=== PATIENT | female | born 1940 | race Caucasian/White ===

== ENCOUNTER 2020-04-09 12:36 | Outpatient (REF) | payer MEDICARE, SELFPAY | END 2020-04-09 12:37 | disposition home or self-care (01) | LOC: HO.HAP 12:36 | PROVIDERS: Visit Provider Internal Medicine | DX: H90.3 Sensorineural hearing loss, bilateral (principal) | CPT/HCPCS: 92592; V5266 ==

== ENCOUNTER 2020-04-15 13:25 | Outpatient (REF) | payer MEDICARE, SELFPAY | END 2020-04-15 13:26 | disposition home or self-care (01) | LOC: HO.HAP 13:25 | PROVIDERS: Visit Provider Internal Medicine | DX: Z13.89 Encounter for screening for other disorder (principal) | CPT/HCPCS: 92700 ==

== ENCOUNTER 2020-07-19 10:35 | Outpatient (REF) | payer MEDICARE, SELFPAY | END 2020-07-19 10:36 | disposition home or self-care (01) | LOC: HO.HAP 10:35 | PROVIDERS: Visit Provider Internal Medicine | DX: Z46.1 Encounter for fitting and adjustment of hearing aid (principal); H90.3 Sensorineural hearing loss, bilateral | CPT/HCPCS: 92593; 99499; V5266 ==

== ENCOUNTER 2020-08-07 15:02 | Outpatient (REF) | payer MEDICARE, SELFPAY | END 2020-08-07 15:03 | disposition home or self-care (01) | LOC: HO.HAP 15:02 | PROVIDERS: Visit Provider Internal Medicine | DX: Z13.89 Encounter for screening for other disorder (principal) ==

== ENCOUNTER → 2021-01-06 14:54 | Outpatient (BNVA) | payer MEDICARE, SELFPAY | PROVIDERS: PCP Internal Medicine; Visit Provider Internal Medicine | DX: M25.561 Pain in right knee (principal); G89.29 Other chronic pain | CPT/HCPCS: 99202 ==

== ENCOUNTER 2021-01-07 16:11 | Emergency (ER) | payer MEDICARE, SELFPAY ==
--- NOTE | ~2021-01-07 | XR_ITS ---
EXAMINATION: XR TIBIA AND FIBULA, RIGHT XR TIBIA AND FIBULA, LEFT CLINICAL INFORMATION: Question fracture. Leg swelling. COMPARISON: None TECHNIQUE: AP and lateral views of each tibia and fibula. FINDINGS: RIGHT TIBIA AND FIBULA: Soft tissues are swollen with subcutaneous edema. No subcutaneous gas. No fracture or malalignment. There is osteoarthritis at the right knee, more pronounced at the medial compartment. At least mild osteoarthritis is suspected in the right ankle. LEFT TIBIA AND FIBULA: Soft tissue swelling and subcutaneous edema are present at the left lower leg, most notably at the ankle. No fracture or malalignment. No subcutaneous gas. Patellofemoral compartment osteoarthritis is present at the left knee. There is at least mild osteoarthritis at the left ankle. XR/XR tibia fibula RT 2V IMPRESSION: Soft tissue swelling and subcutaneous edema at the level of the tibias and fibulas. No fractures are identified.
--- NOTE | ~2021-01-07 | XR_ITS ---
EXAMINATION: XR CHEST CLINICAL INFORMATION: Leg swelling COMPARISON: None TECHNIQUE: Frontal view of the chest was obtained. FINDINGS: Cardiac silhouette is normal in size. The mediastinum appears mildly prominent, similar. 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 Lungs are well aerated. There is no lobar consolidation. No pleural effusion or pneumothorax. XR/XR chest 1V IMPRESSION: -No acute pulmonary pathology. -Mild prominence of the mediastinum, a nonspecific finding but felt to be secondary to unfolding of the thoracic aorta. This may be further evaluated with cross-sectional imaging if clinically indicated.
--- NOTE | ~2021-01-07 | US_ITS ---
EXAMINATION: US VENOUS ULTRASOUND WITH DOPPLER LOWER EXTREMITY, BILATERAL CLINICAL INFORMATION: Bilateral leg/foot swelling. COMPARISON: None TECHNIQUE: Ultrasound of the deep veins is performed from the hip to the calf with compression sonography and color and pulse Doppler assessment. Spectral analysis with color-flow imaging is performed. FINDINGS: RIGHT: There is normal venous compression and respiratory variation and augmented flow. The visualized common femoral vein, superficial femoral vein, profunda femoral vein, popliteal vein, and the trifurcation region shows no evidence of deep venous thrombosis. Within the right popliteal fossa there is a small to moderate-sized popliteal cyst which measures approximately 2.5 x 0.7 x 1.8 cm. LEFT: There is normal venous compression and respiratory variation and augmented flow. The visualized common femoral vein, superficial femoral vein, profunda femoral vein, popliteal vein, and the trifurcation region shows no evidence of deep venous thrombosis. There is no significant popliteal fossa cyst. If the patient's symptoms persist, followup ultrasound in 5 days 7 days might be of value to exclude proximal propagation from a non-visualized calf vein. US/US venous duplex LE IMPRESSION: -No DVT within either lower extremity. -Small to moderate sized right popliteal cyst.
--- NOTE | ~2021-01-07 | XR_ITS ---
EXAMINATION: XR FOOT, RIGHT XR FOOT, LEFT CLINICAL INFORMATION: Foot swelling. COMPARISON: None TECHNIQUE: AP, lateral, and oblique views of each foot. FINDINGS: RIGHT FOOT: Soft tissue swelling is present of the foot and ankle, most notably at the dorsal of the foot. No acute fractures. 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 Osteoarthritis is also present at the ankle. No erosions are identified. More mild multifocal osteoarthritis is present at the other joints in the midfoot and forefoot. No subcutaneous gas. Small enthesopathic spur is present at the plantar fascial origin on the calcaneus. LEFT FOOT: There is generalized soft tissue swelling in the left foot and ankle, most notably at the dorsal aspect of the forefoot. There is severe osteoarthritis in the first MTP joint and more mild multifocal osteoarthritis in the other joints of the midfoot and forefoot. No erosions. No acute fractures. No osteolysis. No subcutaneous gas. Small enthesopathic spurs are present at the Achilles tendon insertion and plantar fascial origin on the calcaneus. XR/XR foot LT 2V IMPRESSION: Generalized soft tissue swelling in the ankles and feet. No acute osseous findings. Multifocal osteoarthritis.
--- NOTE | ~2021-01-07 | XR_ITS ---
EXAMINATION: XR TIBIA AND FIBULA, RIGHT XR TIBIA AND FIBULA, LEFT CLINICAL INFORMATION: Question fracture. Leg swelling. COMPARISON: None TECHNIQUE: AP and lateral views of each tibia and fibula. FINDINGS: RIGHT TIBIA AND FIBULA: Soft tissues are swollen with subcutaneous edema. No subcutaneous gas. No fracture or malalignment. There is osteoarthritis at the right knee, more pronounced at the medial compartment. At least mild osteoarthritis is suspected in the right ankle. LEFT TIBIA AND FIBULA: Soft tissue swelling and subcutaneous edema are present at the left lower leg, most notably at the ankle. No fracture or malalignment. No subcutaneous gas. Patellofemoral compartment osteoarthritis is present at the left knee. There is at least mild osteoarthritis at the left ankle. XR/XR tibia fibula LT 2V IMPRESSION: Soft tissue swelling and subcutaneous edema at the level of the tibias and fibulas. No fractures are identified.
--- NOTE | ~2021-01-07 | XR_ITS ---
EXAMINATION: XR FOOT, RIGHT XR FOOT, LEFT CLINICAL INFORMATION: Foot swelling. COMPARISON: None TECHNIQUE: AP, lateral, and oblique views of each foot. FINDINGS: RIGHT FOOT: Soft tissue swelling is present of the foot and ankle, most notably at the dorsal of the foot. No acute fractures. 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 Osteoarthritis is also present at the ankle. No erosions are identified. More mild multifocal osteoarthritis is present at the other joints in the midfoot and forefoot. No subcutaneous gas. Small enthesopathic spur is present at the plantar fascial origin on the calcaneus. LEFT FOOT: There is generalized soft tissue swelling in the left foot and ankle, most notably at the dorsal aspect of the forefoot. There is severe osteoarthritis in the first MTP joint and more mild multifocal osteoarthritis in the other joints of the midfoot and forefoot. No erosions. No acute fractures. No osteolysis. No subcutaneous gas. Small enthesopathic spurs are present at the Achilles tendon insertion and plantar fascial origin on the calcaneus. XR/XR foot RT 2V IMPRESSION: Generalized soft tissue swelling in the ankles and feet. No acute osseous findings. Multifocal osteoarthritis.
[2021-01-07 17:31] VITALS: BP 144/62; PULSE 74; RESP 24; TEMP 36.9; O2SAT 95; BMI 37.9
--- NOTE | 2021-01-07 17:43 | ECG_ITS ---
Test Reason : CHF Blood Pressure : / mmHG Vent. Rate : 067 BPM Atrial Rate : 067 BPM P-R Int : 194 ms QRS Dur : 084 ms QT Int : 446 ms P-R-T Axes : 073 000 057 degrees QTc Int : 471 ms Normal sinus rhythm Normal ECG No previous ECGs available Referred By: Generic ED Physician Electronically Signed By:Sd White
[2021-01-07 18:04] LABS: Basophils Percent Auto 0.2 % (0-2); Eosinophils Absolute Auto 0.2 X10*3/uL (0.0-0.4); Eosinophils Percent Auto 1.4 % (0-4); Hematocrit 38.2 % (37-47); Hemoglobin 12.7 g/dl (12.0-16.0); Imm Gran Abs Auto 0.08 X10*3/uL (0.00-0.03); Imm Gran Pct Auto 0.6 % (0.0-0.4); Lymphocytes Absolute Auto 2.3 X10*3/uL (1.2-4.9); MANUAL DIFF FLAG NO; Mean Corpuscular HGB Conc 33.2 g/dl (31.0-35.0); Mean Corpuscular Hemoglobin 30.6 pg (27.0-33.0); Mean Platelet Volume 9.3 fL (9.4-12.3); Monocytes Absolute Auto 0.9 X10*3/uL (0.1-1.2); Monocytes Percent Auto 6.6 % (2-11); Neutrophils Absolute Auto 10.2 X10*3/uL (2.0-8.3); Neutrophils Percent Auto 74.2 % (45-73); Platelet Count 291 X10*3/uL (160-400); Red Blood Count 4.15 X10*6/uL (4.20-5.50); Red Cell Distribution Width 13.8 % (11.0-16.0); White Blood Count 13.7 X10*3/uL (4.8-10.8)
[2021-01-07 18:24] LABS: Anion Gap 14 (12-20); Blood Urea Nitrogen 13 mg/dL (9-16); Calcium 9.1 mg/dL (8.4-10.2); Carbon Dioxide 24 mmol/L (22-29); Chloride 108 mmol/L (96-108); Creatinine Clr Calc Pharmacy 51.2; Estimated Glomerular Filt Rate 48; Glucose Random 101 mg/dL (60-115); Potassium 3.4 mmol/L (3.3-5.1); Sodium 143 mmol/L (135-145)
[2021-01-07 18:31] LABS: B Type Natriuretic Peptide 139 pg/mL (<100); Troponin-I High Sensitivity 7.1 ng/L (<3.5-17.0)
--- NOTE | 2021-01-07 20:08 | ED.EXTPRO ---
HPI - Extremity Problem General Chief complaint: Extremity Problem Stated complaint: leg swelling Time Seen by Provider: 01/07/21 20:41 Source: patient Mode of arrival: ambulatory Limitations: no limitations History of Present Illness HPI Narrative: Patient presents to ED for swelling of lower extremities for 1 month. Patient states swelling of lower part of legs and feet. Patient denies any chest pain or shortness of breath. Patient denies any recent trauma to lower extremities. Patient denies any redness, fever, wounds, pus discharge, foul odor, or severe pain. Patient denies any calf pain. Related Data Home Medications Medication Instructions Recorded Confirmed acetaminophen 325 mg capsule 650 mg PO Q6H PRN 01/06/21 01/06/21 ascorbate calcium (vitamin C) 500 500 mg PO DAILY 01/06/21 01/06/21 mg tablet atenolol 100 mg tablet 100 mg PO DAILY 01/06/21 01/06/21 atorvastatin 20 mg tablet 20 mg PO BEDTIME 01/06/21 01/06/21 biotin 1 mg capsule 1 mg PO DAILY 01/06/21 01/06/21 bupropion HCl 150 mg tablet,12 hr 150 mg PO QAM 01/06/21 01/06/21 sustained-release cholecalciferol (vitamin D3) 10 10 mcg PO DAILY 01/06/21 01/06/21 mcg (400 unit) capsule diltiazem HCl 180 mg 180 mg PO DAILY 01/06/21 01/06/21 capsule,extended release 24 hr, controlled doxazosin 2 mg tablet 2 mg PO DAILY 01/06/21 01/06/21 fluticasone propionate 50 1 spray INTRANASAL DAILY 01/06/21 01/06/21 mcg/actuation nasal spray,suspension hydroxyzine HCl 10 mg tablet 10 mg PO BEDTIME 01/06/21 01/06/21 indapamide 1.25 mg tablet 1.25 mg PO QAM 01/06/21 01/06/21 levothyroxine 112 mcg capsule 112 mcg PO DAILY 01/06/21 01/06/21 lisinopril 40 mg tablet 40 mg PO DAILY 01/06/21 01/06/21 tramadol 50 mg tablet 50 mg PO BID PRN 01/06/21 01/06/21 warfarin 2.5 mg tablet 2.5 mg PO DAILY 01/06/21 01/06/21 Allergies Allergy/AdvReac Type Severity Reaction Status Date / Time No Known Allergies Allergy Verified 01/06/21 15:02 Review of Systems Review of Systems: Yes all other systems are reviewed and are negative Constitutional: Constitutional: Reports as per HPI and Reports no additional constitutional complaints Eyes: Eyes: Reports as per HPI and Reports no additional eye complaints ENT: Reports system reviewed and no additional complaints, except as documented and Reports as per HPI Cardiovascular: Cardiovascular: Reports as per HPI and Reports no additional cardiovascular complaints Respiratory: Respiratory: Reports as per HPI and Reports no additional respiratory complaints Gastrointestinal: Gastrointestinal: Reports as per HPI and Reports no additional gastrointestinal complaints Genitourinary: Genitourinary: Reports no additional female genitourinary complaints and Reports as per HPI Musculoskeletal: Musculoskeletal: Reports no additional musculoskeletal complaints and Reports as per HPI Comments: Bilateral lower extremite swelling for one month Neurologic: Reports system reviewed and no additional complaints, except as documented and Reports as per HPI Psychiatric: Psychiatric: Reports no additional psychiatric complaints and Reports as per HPI [facility] Past Medical History Medical History (Updated 01/08/21 @ 00:02 by Debbi Nolasco) Arthritis Atrial fibrillation Herniated disc Left rotator cuff tear Right knee pain Social History Social History Advance Directives: No Advance Directives Information Provided: Yes Physical Exam Vital Signs: Vital Signs: Last Vital Signs Temp 98.5 F 01/07/21 17:31 Pulse 66 01/07/21 22:37 Resp 15 01/07/21 22:37 BP 136/66 01/07/21 22:37 Pulse Ox 94 01/07/21 22:37 Body Mass Index 37.9 Const: General: cooperative, healthy appearing, comfortable, no acute distress, well developed, alert and awake Orientation/consciousness: patient oriented x3 HENMT: Head: Yes normal to inspection, Yes No palpable skull fracture present, Yes normocephalic and Yes atraumatic Eyes: General: appearance normal, both eyes and all related structures Neck: Neck: Yes normal visual inspection, Yes full ROM, Yes no lymphadenopathy, Yes no meningeal signs, Yes trachea midline, Yes supple and No tender Chest: Chest palpation & inspection: normal inspection of the chest and normal palpation of entire chest wall Resp: Effort & Inspection: normal respiratory effort and able to speak in complete sentences Cardio: Jugular venous distension: no JVD Heart sounds: S1 normal heart sound present and S2 normal heart sound present GI: Inspection: Yes normal to inspection and No abdominal wall ecchymosis Palpation (GI): Soft to palpation, not firm, nontender, no guarding and not rigid : General: No CVA tenderness and Yes no CVA tenderness Back/Spine/Pelvis: Back: no CVA tenderness, No CVA tenderness and No back tenderness Skin: General skin exam: no rashes or lesions noted and elasticity normal Neuro: General: patient oriented x3, gait normal, no meningeal signs and CN's II-XI intact bilaterally Cranial nerves: Yes CN's II-XII intact bilaterally Extrem: Other: Bilateral lower extremity positive for swelling with pitting edema and venous stasis changes. Negative for hotness, redness, or calf pain. Motor/neuro/vascular exam of lower extremities intact General: Yes normal to inspection and Yes full ROM Psych: Appearance: grossly normal, well kempt and not disheveled Course Course Course Narrative: Patient was are messed in triage and had labs done, EKG, and cardiac enzymes. Will add lower extremity images such as x-rays and venous Doppler ultrasound. Reevaluation(s) Reevaluation #1: BNP only 139. First troponin 7.1. Lower extremities x-rays and ultrasound negative for fractures, osteomyelitis, or blood clots. Waiting for 2nd troponin result. Time: 22:29 Reevaluation #2: Second troponin came back negative. Patient and daughter educated on compression stockings and compression socks. They were also educated on elevation of the lower extremities when sleeping. Liver enzymes are normal and kidney functions normal. Clinically patient not present in anasarca. Will be given copy of labs and imaging to follow up Time: 23:39 MDM - Extremity (Nontraumatic) MDM Narrative Medical decision making narrative: Venous stasis Lab Data Result diagrams: 01/07/21 17:56 01/07/21 17:56 Labs: Lab Results 01/07/21 01/07/21 01/07/21 Range/Units 17:56 17:56 17:56 WBC 13.7 H (4.8-10.8) X10*3/uL RBC 4.15 L (4.20-5.50) X10*6/uL Hgb 12.7 (12.0-16.0) g/dl Hct 38.2 (37-47) % MCV 92.0 (80-98) fL MCH 30.6 (27.0-33.0) pg MCHC 33.2 (31.0-35.0) g/dl RDW 13.8 (11.0-16.0) % Plt Count 291 (160-400) X10*3/uL MPV 9.3 L (9.4-12.3) fL Immature Gran % (Auto) 0.6 H (0.0-0.4) % Neut % (Auto) 74.2 H (45-73) % Lymph % (Auto) 17.0 L (20-40) % [place] % (Auto) 6.6 (2-11) % Eos % (Auto) 1.4 (0-4) % Baso % (Auto) 0.2 (0-2) % Lymph # (Auto) 2.3 (1.2-4.9) X10*3/uL [place] # (Auto) 0.9 (0.1-1.2) X10*3/uL Eos # (Auto) 0.2 (0.0-0.4) X10*3/uL Baso # (Auto) 0.0 (0.0-0.2) X10*3/uL Abs Immat Gran (auto) 0.08 H (0.00-0.03) X10*3/uL Absolute Neuts (auto) 10.2 H (2.0-8.3) X10*3/uL Absolute Nucleated RBC 0.000 (0.0-0.012) X10*3/uL Nucleated RBC % (auto) 0.0 (0.0-0.2) /100WBC Sodium 143 (135-145) mmol/L Potassium 3.4 (3.3-5.1) mmol/L Chloride 108 (96-108) mmol/L Carbon Dioxide 24 (22-29) mmol/L Anion Gap 14 (12-20) BUN 13 (9-16) mg/dL Creatinine 1.10 (0.5-1.4) mg/dL Estim Creat Clear Calc 51.2 Estimated GFR 48 Random Glucose 101 (60-115) mg/dL Calcium 9.1 (8.4-10.2) mg/dL Total Bilirubin 0.5 (0.0-1.0) mg/dL Direct Bilirubin 0.2 (0.0-0.5) mg/dL AST 14 (5-31) U/L ALT 13 (0-31) U/L Alkaline Phosphatase 95 (39-117) U/L Troponin I High Sens 7.1 (<3.5-17.0) ng/L B-Natriuretic Peptide 139 H (<100) pg/mL Total Protein 6.7 (6.5-8.0) g/dL Albumin 4.0 (3.5-5.0) g/dL 01/07/21 Range/Units 22:25 WBC (4.8-10.8) X10*3/uL RBC (4.20-5.50) X10*6/uL Hgb (12.0-16.0) g/dl Hct (37-47) % MCV (80-98) fL MCH (27.0-33.0) pg MCHC (31.0-35.0) g/dl RDW (11.0-16.0) % Plt Count (160-400) X10*3/uL MPV (9.4-12.3) fL Immature Gran % (Auto) (0.0-0.4) % Neut % (Auto) (45-73) % Lymph % (Auto) (20-40) % [place] % (Auto) (2-11) % Eos % (Auto) (0-4) % Baso % (Auto) (0-2) % Lymph # (Auto) (1.2-4.9) X10*3/uL [place] # (Auto) (0.1-1.2) X10*3/uL Eos # (Auto) (0.0-0.4) X10*3/uL Baso # (Auto) (0.0-0.2) X10*3/uL Abs Immat Gran (auto) (0.00-0.03) X10*3/uL Absolute Neuts (auto) (2.0-8.3) X10*3/uL Absolute Nucleated RBC (0.0-0.012) X10*3/uL Nucleated RBC % (auto) (0.0-0.2) /100WBC Sodium (135-145) mmol/L Potassium (3.3-5.1) mmol/L Chloride (96-108) mmol/L Carbon Dioxide (22-29) mmol/L Anion Gap (12-20) BUN (9-16) mg/dL Creatinine (0.5-1.4) mg/dL Estim Creat Clear Calc Estimated GFR Random Glucose (60-115) mg/dL Calcium (8.4-10.2) mg/dL Total Bilirubin (0.0-1.0) mg/dL Direct Bilirubin (0.0-0.5) mg/dL AST (5-31) U/L ALT (0-31) U/L Alkaline Phosphatase (39-117) U/L Troponin I High Sens 7.2 (<3.5-17.0) ng/L B-Natriuretic Peptide (<100) pg/mL Total Protein (6.5-8.0) g/dL Albumin (3.5-5.0) g/dL ECG Data Interpretation: Normal sinus rhythm. Normal EKG. Ventricular 67. Peer interval 194. QRS 84. QTC 471. Negative STEMI Discharge Plan Discharge Clinical Impression: Venous stasis Patient Disposition: Home, Self-Care Instructions: Leg Edema (ED), Venous Insufficiency (DC) Additional Instructions: Your blood tests and EKG came back normal and negative for heart attack. Lower extremity ultrasound came back negative for blood clots. The x-rays were negative for any fractures or bony infection. Your liver and kidney function came back normal. Your blood cell count and white blood cell count came back normal. X-ray came back negative for cardiomegaly to indicate congestive heart failure. BNP level came back at 01:39 which is negative for cough congestive heart failure. Return to the ED immediately for worsening swelling, redness, hotness, fever, chills, chest pain, shortness of breath, passing out, dizziness, swelling of abdomen, swelling of lips, swelling of upper extremities, profuse swelling of face, or any other concerning symptoms. Prescriptions: No Action doxazosin 2 mg tablet 2 mg PO DAILY RF: 0 diltiazem HCl 180 mg capsule,ext.rel 24h degradable 180 mg PO DAILY RF: 0 levothyroxine 112 mcg capsule 112 mcg PO DAILY RF: 0 atorvastatin 20 mg tablet 20 mg PO BEDTIME RF: 0 atenolol 100 mg tablet 100 mg PO DAILY RF: 0 lisinopril 40 mg tablet 40 mg PO DAILY RF: 0 warfarin 2.5 mg tablet 2.5 mg PO DAILY RF: 0 bupropion HCl [Wellbutrin SR] 150 mg tablet sustained-release 12 hr 150 mg PO QAM RF: 0 fluticasone propionate 50 mcg/actuation spray,suspension 1 spray intranasal DAILY RF: 0 hydroxyzine HCl 10 mg tablet 10 mg PO BEDTIME RF: 0 indapamide 1.25 mg tablet 1.25 mg PO QAM RF: 0 tramadol 50 mg tablet 50 mg PO BID PRNRF: 0 biotin 1 mg capsule 1 mg PO DAILY RF: 0 ascorbate calcium (vitamin C) 500 mg tablet 500 mg PO DAILY RF: 0 cholecalciferol (vitamin D3) 10 mcg (400 unit) capsule 10 mcg PO DAILY RF: 0 acetaminophen [Tylenol] 325 mg capsule 650 mg PO Q6H PRNRF: 0 Referrals: Adeola Munoz MD [Primary Care Provider] - 2 days (Venous stasis) Interventions: ED Discharge Assessment Last Done: 01/07/21 23:55 Discharge Date/Time: 01/07/21 23:55 Print Language: Maltese
[2021-01-07 20:58] LABS: Alanine Aminotransferase 13 U/L (0-31); Alkaline Phosphatase 95 U/L (39-117); Aspartate Amino Transferase 14 U/L (5-31); Bilirubin Direct 0.2 mg/dL (0.0-0.5); Bilirubin Total 0.5 mg/dL (0.0-1.0); Total Protein 6.7 g/dL (6.5-8.0)
[2021-01-07 22:37] VITALS: BP 136/66; PULSE 66; RESP 15; O2SAT 94
[2021-01-07 23:04] LABS: Troponin-I High Sensitivity 7.2 ng/L (<3.5-17.0)
== END 2021-01-07 23:55 | disposition home or self-care (01) ==
PROVIDERS: Physician Assistant; Emergency Provider Emergency Medicine; PCP Internal Medicine
DX: I87.8 Other specified disorders of veins (principal); R22.43 Localized swelling, mass and lump, lower limb, bilateral
CPT/HCPCS: 36415; 71045; 73590; 73620; 80048; 80076; 83880; 84484; 85025; 93005; 93970; 99284; 99285

== ENCOUNTER 2021-03-12 | Outpatient (REF) | payer MEDICARE, SELFPAY ==
--- NOTE | ~2021-03-12 | FL_ITS ---
EXAMINATION: XR FLUOROSCOPY WITH IMAGES CLINICAL INFORMATION: Pain right knee. COMPARISON: None. TECHNIQUE: Fluoroscopy performed by Dr. Sunshine.. Fluoroscopy time: 0.1 minutes DAP: 0.359 Gycm2 Images: 2 FINDINGS: There are needles positioned medially lateral to the distal femoral cortex and medial proximal tibial cortex for pain management. Mild reduction in the medial compartment joint space is visualized. No fracture or loose body. FL/FL guidance in treatment room IMPRESSION: Fluoroscopy was provided to referring physician for pain management. Mild degenerative changes medial compartment.
== END 2021-03-12 00:01 | disposition home or self-care (01) ==
LOC: HO.RADIR
PROVIDERS: Visit Provider Internal Medicine
DX: Z13.89 Encounter for screening for other disorder (principal)

== ENCOUNTER → 2021-03-12 11:18 | Outpatient (BNVA) | payer MEDICARE, SELFPAY | PROVIDERS: PCP Internal Medicine; Visit Provider Internal Medicine | DX: M25.561 Pain in right knee (principal); G89.29 Other chronic pain | CPT/HCPCS: 64450 ==

== ENCOUNTER 2021-04-17 20:03 | Inpatient (IN) | payer MEDICARE, SELFPAY ==
--- NOTE | 2021-04-17 | ECG_ITS ---
Test Reason : WEAKNESS Blood Pressure : / mmHG Vent. Rate : 105 BPM Atrial Rate : 264 BPM P-R Int : 000 ms QRS Dur : 088 ms QT Int : 404 ms P-R-T Axes : 261 -06 108 degrees QTc Int : 533 ms Atrial flutter with variable A-V block Nonspecific ST and T wave abnormality Prolonged QT RSR' or QR pattern in V1 suggests right ventricular conduction delay Abnormal ECG Rhythm shows atrial flutter with variable block is new Referred By: Generic ED Physician Electronically Signed By:MELIA BAZZI MD
--- NOTE | ~2021-04-17 | XR_ITS ---
EXAMINATION: XR CHEST CLINICAL INFORMATION: SOB. COMPARISON: Chest 01/07/2021 TECHNIQUE: Frontal view of the chest was obtained. FINDINGS: The lungs are well-expanded and clear of acute process. The heart size is mildly enlarged. Pulmonary vascularity is normal. No gross bony abnormality. XR/XR chest 1V IMPRESSION: Mild cardiomegaly. Otherwise no acute process.
--- NOTE | ~2021-04-17 | XR_ITS ---
EXAMINATION: XR SHOULDER, LEFT CLINICAL INFORMATION: Status post fall. COMPARISON: None TECHNIQUE: Three views of the left shoulder. FINDINGS: The glenohumeral joint space is normal. There is mild loss of left AC joint with periapical spurring. There is a moderate size inferior acromial enthesophyte. XR/XR shoulder LT min 2V IMPRESSION: Mild degenerative changes left AC joint with inferior acromial moderate to large enthesophytes. No acute fracture or dislocation seen.
--- NOTE | ~2021-04-17 | CT_ITS ---
EXAMINATION: CT HEAD WITHOUT CONTRAST CLINICAL INFORMATION: Status post fall, on Coumadin rule out intracranial abnormality. COMPARISON: None TECHNIQUE: Contiguous axial imaging was performed from the skull base to vertex without intravenous administration of contrast. Coronal and sagittal reformatted images were obtained. This CT examination was performed using dose optimization techniques as appropriate, variously including the following: *Automated exposure control *Adjustment of mA and/or kV according to patient size (this includes techniques or standardized protocols for targeted exams where dose is matched to indication/reason for exam; i.e. extremities or head) *Use of iterative reconstruction technique DLP: 732 mGy-cm FINDINGS: There is no evidence of acute intracranial hemorrhage or territorial infarction. No abnormal mass effect or midline shift is seen. [place] to white matter differentiation is well preserved. No extra-axial fluid collections are identified. The ventricles are normal in size. Mild periventricular microvascular changes are seen. There is no abnormal attenuation within the brain parenchyma. Incidental hyperostosis frontalis interna. The osseous structures and soft tissues are otherwise unremarkable. The mastoid air cells and visualized portions of the paranasal sinuses are well aerated. CT/CT head/brain wo con IMPRESSION: No acute intracranial pathology.
[2021-04-17 20:11] VITALS: BP 128/64; BP 133/75; PULSE 110; PULSE 95; RESP 18; TEMP 36.7; O2SAT 95; O2SAT 98; BMI 38.7
[2021-04-17 20:17] VITALS: BP 133/55; PULSE 115; RESP 22; TEMP 36.9; O2SAT 95
[2021-04-17 20:35] LABS: MANUAL DIFF FLAG NO
[2021-04-17 20:37] LABS: Basophils Percent Auto 0.1 % (0-2); Eosinophils Percent Auto 0.1 % (0-4); Hematocrit 38.4 % (37-47); Imm Gran Abs Auto 0.08 X10*3/uL (0.00-0.03); Imm Gran Pct Auto 0.4 % (0.0-0.4); Lymphocytes Absolute Auto 0.9 X10*3/uL (1.2-4.9); Mean Corpuscular HGB Conc 33.9 g/dl (31.0-35.0); Mean Corpuscular Hemoglobin 29.5 pg (27.0-33.0); Mean Corpuscular Volume 87.1 fL (80-98); Mean Platelet Volume 9.6 fL (9.4-12.3); Monocytes Absolute Auto 1.4 X10*3/uL (0.1-1.2); Monocytes Percent Auto 7.5 % (2-11); Neutrophils Absolute Auto 15.6 X10*3/uL (2.0-8.3); Neutrophils Percent Auto 86.9 % (45-73); Platelet Count 226 X10*3/uL (160-400); Red Blood Count 4.41 X10*6/uL (4.20-5.50); Red Cell Distribution Width 13.8 % (11.0-16.0); White Blood Count 17.9 X10*3/uL (4.8-10.8)
[2021-04-17 21:11] LABS: Alanine Aminotransferase 51 U/L (0-31); Albumin Level 3.7 g/dL (3.5-5.0); Alkaline Phosphatase 96 U/L (39-117); Anion Gap 18 (12-20); Aspartate Amino Transferase 171 U/L (5-31); Blood Urea Nitrogen 29 mg/dL (9-16); Calcium 8.4 mg/dL (8.4-10.2); Carbon Dioxide 21 mmol/L (22-29); Chloride 99 mmol/L (96-108); Creatinine Clr Calc Pharmacy 36.8; Estimated Glomerular Filt Rate 31; Glucose Random 149 mg/dL (60-115); Potassium 3.1 mmol/L (3.3-5.1); Sodium 135 mmol/L (135-145); Total Protein 6.4 g/dL (6.5-8.0)
--- NOTE | 2021-04-17 21:11 | ED.FALL ---
HPI - Fall General Chief Complaint: Fall Stated Complaint: POSSIBLE UTI Time Seen by Provider: 04/17/21 21:11 Source: patient and family Mode of arrival: EMS History of Present Illness HPI Narrative: Patient is 80 years old obese with history of rotator cuff tendinitis AFib on Coumadin fell last night at 21:00 while trying to get onto the bed which was at a higher level and slid down had to lay down next to bed all night from 21:00 to 09:00 again today in the afternoon she was unable to get into the bed and she laid down next to the bed until she came here. No loss of consciousness no head injury no seizures. Also for last few days patient has been having frequency and slight dysuria no fever no chills no vomiting Related Data Home Medications Medication Instructions Recorded Confirmed acetaminophen 325 mg capsule 650 mg PO Q6H PRN 01/06/21 04/18/21 (Tylenol) ascorbate calcium (vitamin C) 500 500 mg PO DAILY 01/06/21 04/18/21 mg tablet atenolol 100 mg tablet 100 mg PO DAILY 01/06/21 04/18/21 atorvastatin 20 mg tablet 20 mg PO BEDTIME 01/06/21 04/18/21 biotin 1 mg capsule 1 mg PO DAILY 01/06/21 04/18/21 bupropion HCl 150 mg tablet,12 hr 150 mg PO QAM 01/06/21 04/18/21 sustained-release (Wellbutrin SR) cholecalciferol (vitamin D3) 10 10 mcg PO DAILY 01/06/21 04/18/21 mcg (400 unit) capsule diltiazem HCl 180 mg 180 mg PO DAILY 01/06/21 04/18/21 capsule,extended release 24 hr, controlled doxazosin 2 mg tablet 2 mg PO DAILY 01/06/21 04/18/21 fluticasone propionate 50 1 spray INTRANASAL DAILY 01/06/21 04/18/21 mcg/actuation nasal spray,suspension hydroxyzine HCl 10 mg tablet 10 mg PO BEDTIME 01/06/21 04/18/21 indapamide 1.25 mg tablet 1.25 mg PO QAM 01/06/21 04/18/21 levothyroxine 112 mcg capsule 112 mcg PO DAILY 01/06/21 04/18/21 lisinopril 40 mg tablet 40 mg PO DAILY 01/06/21 04/18/21 warfarin 2.5 mg tablet 2.5 mg PO DAILY 01/06/21 04/18/21 Allergies Allergy/AdvReac Type Severity Reaction Status Date / Time No Known Allergies Allergy Verified 04/17/21 20:46 Review of Systems Review of Systems: Yes all other systems are reviewed and are negative [facility] Past Medical History Medical History Arthritis Atrial fibrillation Herniated disc Left rotator cuff tear Right knee pain Social History Social History Alcohol intake: never Patient Tobacco Use Status: Current everyday Tobacco user Use of substances other than those prescribed or required for medical reasons: No Advance Directives: No Physical Exam Vital Signs: Vital Signs: Last Vital Signs Temp 98.4 F 04/17/21 20:17 Pulse 115 H 04/17/21 20:17 Resp 22 H 04/17/21 20:17 BP 133/55 L 04/17/21 20:17 Pulse Ox 95 04/17/21 20:17 Body Mass Index 38.7 Const: General: comfortable, alert and awake Nutritional Appearance: obese Orientation/consciousness: patient oriented x3 HENMT: Head: Yes normal to inspection, Yes No palpable skull fracture present and Yes normocephalic Mouth: Abnormal oral and palatal mucosa present (Dry oral mucosa) Eyes: General: appearance normal, both eyes and all related structures Neck: Neck: Yes normal visual inspection and Yes full ROM Chest: Chest palpation & inspection: normal inspection of the chest and normal palpation of entire chest wall Resp: Effort & Inspection: normal respiratory effort Auscultation: clear to auscultation bilaterally Cardio: Palpation: normal PMI Rate: regular rate Rhythm: regular rhythm Heart sounds: S1 normal heart sound present and S2 normal heart sound present Peripheral pulses: Peripheral pulses 2+ throughout GI: Inspection: Yes normal to inspection Palpation (GI): Soft to palpation and nontender Auscultation: normal bowel sounds : General: Yes no CVA tenderness Back/Spine/Pelvis: Back: no CVA tenderness Thoracic/Lumbar Spine: No thoraco-lumbar spasm, No thoracic spinal tenderness and No lumbar spinal tenderness Skin: General skin exam: ecchymosis (Left shoulder) Neuro: General: patient oriented x3, moves all extremities and no focal motor deficits Extrem: Shoulder/upper arm images: 1. Tenderness at left rotator cuff with diffuse ecchymosis painful abduction MDM - Fall MDM Narrative Medical decision making narrative: Patient with mechanical fall lab workup showed rhabdomyolysis with UTI and LISBETH. Will admit patient for IV antibiotic and IV hydration Lab Data Attestation: I reviewed the patient's lab results. Result diagrams: 04/17/21 20:29 04/17/21 20:29 Labs: Lab Results 04/17/21 04/17/21 04/17/21 Range/Units 20:29 20:29 21:34 WBC 17.9 H (4.8-10.8) X10*3/uL RBC 4.41 (4.20-5.50) X10*6/uL Hgb 13.0 (12.0-16.0) g/dl Hct 38.4 (37-47) % MCV 87.1 (80-98) fL MCH 29.5 (27.0-33.0) pg MCHC 33.9 (31.0-35.0) g/dl RDW 13.8 (11.0-16.0) % Plt Count 226 (160-400) X10*3/uL MPV 9.6 (9.4-12.3) fL Immature Gran % (Auto) 0.4 (0.0-0.4) % Neut % (Auto) 86.9 H (45-73) % Lymph % (Auto) 5.0 L (20-40) % [place] % (Auto) 7.5 (2-11) % Eos % (Auto) 0.1 (0-4) % Baso % (Auto) 0.1 (0-2) % Lymph # (Auto) 0.9 L (1.2-4.9) X10*3/uL [place] # (Auto) 1.4 H (0.1-1.2) X10*3/uL Eos # (Auto) 0.0 (0.0-0.4) X10*3/uL Baso # (Auto) 0.0 (0.0-0.2) X10*3/uL Abs Immat Gran (auto) 0.08 H (0.00-0.03) X10*3/uL Absolute Neuts (auto) 15.6 H (2.0-8.3) X10*3/uL Absolute Nucleated RBC 0.000 (0.0-0.012) X10*3/uL Nucleated RBC % (auto) 0.0 (0.0-0.2) /100WBC PT (9.9-13.0) SEC INR (0.9-1.1) APTT (24.1-38.0) SEC Sodium 135 (135-145) mmol/L Potassium 3.1 L (3.3-5.1) mmol/L Chloride 99 (96-108) mmol/L Carbon Dioxide 21 L (22-29) mmol/L Anion Gap 18 (12-20) BUN 29 H D (9-16) mg/dL Creatinine 1.60 H (0.5-1.4) mg/dL Estim Creat Clear Calc 36.8 Estimated GFR 31 Random Glucose 149 H (60-115) mg/dL Lactic Acid (0.5-2.0) mmol/L Calcium 8.4 D (8.4-10.2) mg/dL Magnesium Cancelled Total Bilirubin 1.0 (0.0-1.0) mg/dL AST 171 H (5-31) U/L ALT 51 H (0-31) U/L Alkaline Phosphatase 96 (39-117) U/L Total Creatine Kinase 9568 H (26-140) U/L Total Protein 6.4 L (6.5-8.0) g/dL Albumin 3.7 (3.5-5.0) g/dL Urine Color Urine Appearance Urine pH (5.0-8.0) Ur Specific [place] (1.005-1.025) Urine Protein (NEG-TRACE) MG/DL Urine Glucose (UA) (NEG) MG/DL Urine Ketones (NEG) MG/DL Urine Blood (NEG) Urine Nitrite (NEG) Ur Leukocyte Esterase (NEG) Urine RBC (0) /HPF Urine WBC (0-4) /HPF Ur Squamous Epith Cells /LPF Urine Bacteria /LPF Granular Casts /LPF Urine Mucus /LPF COVID-19 (NUSRAT) Negative (Negative) COVID-19 Clin Com See Note 04/17/21 04/17/21 04/17/21 Range/Units 21:48 21:48 21:48 WBC (4.8-10.8) X10*3/uL RBC (4.20-5.50) X10*6/uL Hgb (12.0-16.0) g/dl Hct (37-47) % MCV (80-98) fL MCH (27.0-33.0) pg MCHC (31.0-35.0) g/dl RDW (11.0-16.0) % Plt Count (160-400) X10*3/uL MPV (9.4-12.3) fL Immature Gran % (Auto) (0.0-0.4) % Neut % (Auto) (45-73) % Lymph % (Auto) (20-40) % [place] % (Auto) (2-11) % Eos % (Auto) (0-4) % Baso % (Auto) (0-2) % Lymph # (Auto) (1.2-4.9) X10*3/uL [place] # (Auto) (0.1-1.2) X10*3/uL Eos # (Auto) (0.0-0.4) X10*3/uL Baso # (Auto) (0.0-0.2) X10*3/uL Abs Immat Gran (auto) (0.00-0.03) X10*3/uL Absolute Neuts (auto) (2.0-8.3) X10*3/uL Absolute Nucleated RBC (0.0-0.012) X10*3/uL Nucleated RBC % (auto) (0.0-0.2) /100WBC PT 20.8 H (9.9-13.0) SEC INR 1.8 H (0.9-1.1) APTT 31.8 (24.1-38.0) SEC Sodium (135-145) mmol/L Potassium (3.3-5.1) mmol/L Chloride (96-108) mmol/L Carbon Dioxide (22-29) mmol/L Anion Gap (12-20) BUN (9-16) mg/dL Creatinine (0.5-1.4) mg/dL Estim Creat Clear Calc Estimated GFR Random Glucose (60-115) mg/dL Lactic Acid 1.3 (0.5-2.0) mmol/L Calcium (8.4-10.2) mg/dL Magnesium 1.8 Total Bilirubin (0.0-1.0) mg/dL AST (5-31) U/L ALT (0-31) U/L Alkaline Phosphatase (39-117) U/L Total Creatine Kinase (26-140) U/L Total Protein (6.5-8.0) g/dL Albumin (3.5-5.0) g/dL Urine Color Urine Appearance Urine pH (5.0-8.0) Ur Specific [place] (1.005-1.025) Urine Protein (NEG-TRACE) MG/DL Urine Glucose (UA) (NEG) MG/DL Urine Ketones (NEG) MG/DL Urine Blood (NEG) Urine Nitrite (NEG) Ur Leukocyte Esterase (NEG) Urine RBC (0) /HPF Urine WBC (0-4) /HPF Ur Squamous Epith Cells /LPF Urine Bacteria /LPF Granular Casts /LPF Urine Mucus /LPF COVID-19 (NUSRAT) (Negative) COVID-19 Clin Com 04/18/21 Range/Units 00:08 WBC (4.8-10.8) X10*3/uL RBC (4.20-5.50) X10*6/uL Hgb (12.0-16.0) g/dl Hct (37-47) % MCV (80-98) fL MCH (27.0-33.0) pg MCHC (31.0-35.0) g/dl RDW (11.0-16.0) % Plt Count (160-400) X10*3/uL MPV (9.4-12.3) fL Immature Gran % (Auto) (0.0-0.4) % Neut % (Auto) (45-73) % Lymph % (Auto) (20-40) % [place] % (Auto) (2-11) % Eos % (Auto) (0-4) % Baso % (Auto) (0-2) % Lymph # (Auto) (1.2-4.9) X10*3/uL [place] # (Auto) (0.1-1.2) X10*3/uL Eos # (Auto) (0.0-0.4) X10*3/uL Baso # (Auto) (0.0-0.2) X10*3/uL Abs Immat Gran (auto) (0.00-0.03) X10*3/uL Absolute Neuts (auto) (2.0-8.3) X10*3/uL Absolute Nucleated RBC (0.0-0.012) X10*3/uL Nucleated RBC % (auto) (0.0-0.2) /100WBC PT (9.9-13.0) SEC INR (0.9-1.1) APTT (24.1-38.0) SEC Sodium (135-145) mmol/L Potassium (3.3-5.1) mmol/L Chloride (96-108) mmol/L Carbon Dioxide (22-29) mmol/L Anion Gap (12-20) BUN (9-16) mg/dL Creatinine (0.5-1.4) mg/dL Estim Creat Clear Calc Estimated GFR Random Glucose (60-115) mg/dL Lactic Acid (0.5-2.0) mmol/L Calcium (8.4-10.2) mg/dL Magnesium Total Bilirubin (0.0-1.0) mg/dL AST (5-31) U/L ALT (0-31) U/L Alkaline Phosphatase (39-117) U/L Total Creatine Kinase (26-140) U/L Total Protein (6.5-8.0) g/dL Albumin (3.5-5.0) g/dL Urine Color YELLOW Urine Appearance CLOUDY Urine pH 6.0 (5.0-8.0) Ur Specific [place] 1.020 (1.005-1.025) Urine Protein 1+ H (NEG-TRACE) MG/DL Urine Glucose (UA) NEG (NEG) MG/DL Urine Ketones NEG (NEG) MG/DL Urine Blood 2+ H (NEG) Urine Nitrite POS H (NEG) Ur Leukocyte Esterase 3+ H (NEG) Urine RBC 0-2 (0) /HPF Urine WBC 76-150 H (0-4) /HPF Ur Squamous Epith Cells TRACE /LPF Urine Bacteria 4+ /LPF Granular Casts 0-2 /LPF Urine Mucus TRACE /LPF COVID-19 (NUSRAT) (Negative) COVID-19 Clin Com ECG Data Attestation: I personally reviewed and interpreted this ECG as follows: Interpretation: Normal sinus rhythm heart rate 67 beats per minute normal intervals normal axis no acute ST wave changes impression normal EKG Discharge Plan Discharge Clinical Impression: UTI (urinary tract infection) Qualifiers: Urinary tract infection type: acute cystitis Hematuria presence: without hematuria Qualified Code(s): N30.00 - Acute cystitis without hematuria Rhabdomyolysis Qualifiers: Rhabdomyolysis type: traumatic Encounter type: initial encounter Qualified Code(s): T79.6XXA - Traumatic ischemia of muscle, initial encounter Patient Disposition: Admitted As Inpatient
[2021-04-17] MEDS: 0.9 % Sodium Chloride 1,000 ML 999 ML IVCONT ×2 (21:27→22:59)
[2021-04-17] MEDS: Potassium Bicarbonate/Cit AC 25 MEQ TABLET.EFF PO (21:31)
[2021-04-17 21:59] LABS: COVID-19 Test Negative (Negative); IDNOW Serial# 55D5AD1C
[2021-04-17 22:02] LABS: INTERNATIONAL NORM RATIO 1.8 (0.9-1.1); Prothrombin Time 20.8 SEC (9.9-13.0)
[2021-04-17 22:04] LABS: Partial Thromboplastin Time 31.8 SEC (24.1-38.0)
[2021-04-17 22:07] LABS: Lactic Acid 1.3 mmol/L (0.5-2.0)
[2021-04-17 22:10] LABS: Magnesium 1.8 mg/dL (1.6-2.6)
[2021-04-17] MEDS: cefTRIAXone sodium 1 GM in 0.9 % Sodium Chloride 50 ML IV (22:23)
[2021-04-18] VITALS (9 sets, daily range): BP systolic 106–173; BP diastolic 57–94; PULSE 66–137; RESP 16–44; TEMP 36.3–37.2; O2SAT 93–98
[2021-04-18 00:13] LABS: Appearance Urine CLOUDY; Color Urine YELLOW; Glucose Urine UA NEG (NEG); Leukocyte Esterase Urine 3+ (NEG); Nitrite Urine POS (NEG); UACC Culture Trigger YES; Urine Blood 2+ (NEG); Urine Ketones NEG (NEG); Urine Protein 1+ MG/DL (NEG-TRACE)
[2021-04-18 00:27] LABS: Bacteria Urine 4+ /LPF; Mucus Urine TRACE /LPF; RBC Urine 0-2 /HPF (0); Squamous Epithelial Cell Urine TRACE /LPF; UACC CULT YES
[2021-04-18 00:28] LABS: Granular Casts Urine 0-2 /LPF
[2021-04-18] MEDS: Lactated Ringers 1,000 ML 125 ML IVCONT ×3 (03:37→20:55)
[2021-04-18 06:09] LABS: Basophils Percent Auto 0.2 % (0-2); Eosinophils Absolute Auto 0.1 X10*3/uL (0.0-0.4); Eosinophils Percent Auto 0.6 % (0-4); Hematocrit 36.1 % (37-47); Imm Gran Abs Auto 0.13 X10*3/uL (0.00-0.03); Imm Gran Pct Auto 0.6 % (0.0-0.4); Lymphocytes Absolute Auto 0.3 X10*3/uL (1.2-4.9); Lymphocytes Percent Auto 1.6 % (20-40); MANUAL DIFF FLAG SCAN; Mean Corpuscular HGB Conc 33.2 g/dl (31.0-35.0); Mean Corpuscular Hemoglobin 29.1 pg (27.0-33.0); Mean Corpuscular Volume 87.6 fL (80-98); Mean Platelet Volume 9.6 fL (9.4-12.3); Monocytes Absolute Auto 1.2 X10*3/uL (0.1-1.2); Monocytes Percent Auto 5.9 % (2-11); Neutrophils Absolute Auto 19.1 X10*3/uL (2.0-8.3); Neutrophils Percent Auto 91.1 % (45-73); Platelet Count 209 X10*3/uL (160-400); Red Blood Count 4.12 X10*6/uL (4.20-5.50); Red Cell Distribution Width 13.7 % (11.0-16.0); SCAN SMEAR FLAG 1
--- NOTE | 2021-04-18 06:14 | PC.NURSE ---
Pt alert and oriented x3, calm and cooperative. Pt noted to desat to 88%, placed on 2 liters O2 sat at 93%. Pt denies pain, denies chest pain. Pt had multiple incontinent urine episodes throughout shift, pt states she was unable to wait with urgency with urinating. pt voided on bedpan intermittently throughout shift. Pt turns and positions independently. IV intact, IV infusing IV fluids at this time. Pt resting in hospital bed, will continue to monitor.
[2021-04-18 06:21] LABS: Anion Gap 15 (12-20); Blood Urea Nitrogen 23 mg/dL (9-16); Carbon Dioxide 23 mmol/L (22-29); Chloride 101 mmol/L (96-108); Creatinine Clr Calc Pharmacy 46.8; Estimated Glomerular Filt Rate 41; Glucose Random 162 mg/dL (60-115); Sodium 136 mmol/L (135-145)
[2021-04-18 06:34] LABS: SLIDE REVIEW VERIFIED
--- NOTE | 2021-04-18 06:45 | P.HPHOSP_ITS ---
History of Present Illness Date of Service: 04/18/21 Chief Complaint: Fall out of bed This is a 80-year-old female with past medical history of AFib, arthritis, hyperlipidemia, hypertension and hypothyroidism presents to the hospital after slipping and falling out of her bed. Patient reports that she was on the floor for 10 minutes but the previous night similar incident occurred where she was on the floor for over 10 hours, but refused to come to the hospital. She , denies any head injury, denies any dizziness, weakness, numbness, tingling. She denies any headache or change in vision. She denies any chest pain or palpitations. She reports shortness of breath with no cough or sputum production, no lower extremity edema, no orthopnea or PND. Patient vitals are significant for a temp of 98.1?, heart rate of 110, respiratory rate of 18, blood pressure 133/75, satting 95% on room air Labs are significant for WBC count 21, PT of 20, INR of 1.8, potassium 3.0, BUN of 23, creatinine of 1.6 with a baseline of 1.1, elevated AST ALT, CPK of 9568, UA positive for nitrites, leukocyte Estrace, WBC. Head CT negative Shoulder x-ray shows no acute fracture or dislocation Patient will be admitted for management of UTI, rhabdo as well as LISBETH Review of Systems Review of Systems: Yes all other systems are reviewed and are negative [facility] Medical History Arthritis Atrial fibrillation Herniated disc Left rotator cuff tear Right knee pain Pertinent family history: No pertinent family history Social History Alcohol intake: never Patient Tobacco Use Status: Current everyday Tobacco user Use of substances other than those prescribed or required for medical reasons: No Advance Directives: No Meds Allergies Allergy/AdvReac Type Severity Reaction Status Date / Time No Known Allergies Allergy Verified 04/17/21 20:46 Active Medications: Current Medications Acetaminophen (Acetaminophen 325 Mg Tablet) 650 mg PO Q6H PRN PRN Reason: Pain, Mild (Pain Scale 1-3) Docusate Sodium (Docusate Sodium 100 Mg Capsule) 100 mg PO DAILY PRN PRN Reason: Constipation Lactated Ringer's (Lr) 1,000 mls @ 125 mls/hr IVCONT .Q8H [facility] Last Admin: 04/18/21 03:37 Dose: 125 mls/hr Documented by: Ceftriaxone Sodium 1 gm/ (Sodium Chloride) 50 mls @ 100 mls/hr IV Q24H [facility] Ondansetron HCl (Ondansetron Hcl 4 Mg/2 Ml Vial) 4 mg IVPUSH Q8H PRN PRN Reason: Nausea and Vomiting Sodium Chloride (0.9 % Sodium Chloride Flush 3 Ml Syringe) 3 ml IVFLUSH QSHIFT [facility] Home Medications Medication Instructions Recorded Confirmed Last Taken Type acetaminophen 325 mg capsule 650 mg PO Q6H PRN 01/06/21 03/12/21 3 Days Ago History (Tylenol) ~04/15/21 ascorbate calcium (vitamin C) 500 500 mg PO DAILY 01/06/21 03/12/21 Unknown History mg tablet atenolol 100 mg tablet 100 mg PO DAILY 01/06/21 03/12/21 04/17/21 08:00 History atorvastatin 20 mg tablet 20 mg PO BEDTIME 01/06/21 03/12/21 04/17/21 21:00 History biotin 1 mg capsule 1 mg PO DAILY 01/06/21 03/12/21 Unknown History bupropion HCl 150 mg tablet,12 hr 150 mg PO QAM 01/06/21 03/12/21 04/17/21 08:00 History sustained-release (Wellbutrin SR) cholecalciferol (vitamin D3) 10 10 mcg PO DAILY 01/06/21 03/12/21 Unknown History mcg (400 unit) capsule diltiazem HCl 180 mg 180 mg PO DAILY 01/06/21 03/12/21 04/17/21 08:00 History capsule,extended release 24 hr, controlled doxazosin 2 mg tablet 2 mg PO DAILY 01/06/21 03/12/21 04/17/21 08:00 History fluticasone propionate 50 1 spray INTRANASAL DAILY 01/06/21 03/12/21 04/17/21 08:00 History mcg/actuation nasal spray,suspension hydroxyzine HCl 10 mg tablet 10 mg PO BEDTIME 01/06/21 03/12/21 04/16/21 21:00 History indapamide 1.25 mg tablet 1.25 mg PO QAM 01/06/21 03/12/21 04/17/21 08:00 History levothyroxine 112 mcg capsule 112 mcg PO DAILY 01/06/21 03/12/21 04/16/21 21:00 History lisinopril 40 mg tablet 40 mg PO DAILY 01/06/21 03/12/21 04/17/21 08:00 History warfarin 2.5 mg tablet 2.5 mg PO DAILY 01/06/21 03/12/21 04/17/21 11:00 History atenolol 50 mg tablet 1 tab PO BID 04/18/21 Unknown History furosemide 20 mg tablet 1 tab PO DAILY 04/18/21 Unknown History Physical Exam Vital Signs and Narrative: Vital Signs: Last Vital Signs Temp 98.4 F 04/18/21 05:42 Pulse 137 H 04/18/21 05:51 Resp 44 H 04/18/21 05:51 BP 173/94 H 04/18/21 05:51 Pulse Ox 94 04/18/21 05:51 Body Mass Index 38.7 Const: General: cooperative and no acute distress Orientation/consciousness: patient oriented x3 Eyes: General: appearance normal, both eyes and all related structures Pupils: Equal, round and reactive pupils present Resp: Effort & Inspection: normal respiratory effort Auscultation: clear to auscultation bilaterally Cardio: Rate: regular rate Rhythm: regular rhythm GI: Palpation (GI): Soft to palpation Auscultation: normal bowel sounds Skin: General skin exam: no rashes or lesions noted Neuro: General: patient oriented x3 Cranial nerves: Yes Equal, round and reactive pupils present Cognition (Neuro): normal cognition Extrem: General: Yes normal to inspection and Yes no pedal edema Results Labs CBC and Chem 7: 04/18/21 05:53 04/18/21 05:53 Labs: Laboratory Results - last 24 hr 04/17/21 04/17/21 04/17/21 20:29 20:29 21:34 MCV 87.1 MCH 29.5 MCHC 33.9 RDW 13.8 Plt Count 226 MPV 9.6 Immature Gran % (Auto) 0.4 Neut % (Auto) 86.9 H Lymph % (Auto) 5.0 L [place] % (Auto) 7.5 Eos % (Auto) 0.1 Baso % (Auto) 0.1 Lymph # (Auto) 0.9 L [place] # (Auto) 1.4 H Eos # (Auto) 0.0 Baso # (Auto) 0.0 Abs Immat Gran (auto) 0.08 H Absolute Neuts (auto) 15.6 H Absolute Nucleated RBC 0.000 Nucleated RBC % (auto) 0.0 Smear Tech's Comments PT INR APTT Anion Gap 18 Estim Creat Clear Calc 36.8 Estimated GFR 31 Random Glucose 149 H Lactic Acid Calcium 8.4 D Magnesium Cancelled Total Bilirubin 1.0 AST 171 H ALT 51 H Alkaline Phosphatase 96 Total Creatine Kinase 9568 H Total Protein 6.4 L Albumin 3.7 Urine Color Urine Appearance Urine pH Ur Specific [place] Urine Protein Urine Glucose (UA) Urine Ketones Urine Blood Urine Nitrite Ur Leukocyte Esterase Urine RBC Urine WBC Ur Squamous Epith Cells Urine Bacteria Granular Casts Urine Mucus COVID-19 (NUSRAT) Negative COVID-19 [employer] Com See Note 04/17/21 04/17/21 04/17/21 21:48 21:48 21:48 MCV MCH MCHC RDW Plt Count MPV Immature Gran % (Auto) Neut % (Auto) Lymph % (Auto) [place] % (Auto) Eos % (Auto) Baso % (Auto) Lymph # (Auto) [place] # (Auto) Eos # (Auto) Baso # (Auto) Abs Immat Gran (auto) Absolute Neuts (auto) Absolute Nucleated RBC Nucleated RBC % (auto) Smear Tech's Comments PT 20.8 H INR 1.8 H APTT 31.8 Anion Gap Estim Creat Clear Calc Estimated GFR Random Glucose Lactic Acid 1.3 Calcium Magnesium 1.8 Total Bilirubin AST ALT Alkaline Phosphatase Total Creatine Kinase Total Protein Albumin Urine Color Urine Appearance Urine pH Ur Specific [place] Urine Protein Urine Glucose (UA) Urine Ketones Urine Blood Urine Nitrite Ur Leukocyte Esterase Urine RBC Urine WBC Ur Squamous Epith Cells Urine Bacteria Granular Casts Urine Mucus COVID-19 (NUSRAT) COVID-19 [employer] 04/18/21 04/18/21 04/18/21 00:08 05:53 05:53 MCV 87.6 MCH 29.1 MCHC 33.2 RDW 13.7 Plt Count 209 MPV 9.6 Immature Gran % (Auto) 0.6 H Neut % (Auto) 91.1 H Lymph % (Auto) 1.6 L [place] % (Auto) 5.9 Eos % (Auto) 0.6 Baso % (Auto) 0.2 Lymph # (Auto) 0.3 L [place] # (Auto) 1.2 Eos # (Auto) 0.1 Baso # (Auto) 0.0 Abs Immat Gran (auto) 0.13 H Absolute Neuts (auto) 19.1 H Absolute Nucleated RBC 0.000 Nucleated RBC % (auto) 0.0 Smear Tech's Comments VERIFIED PT INR APTT Anion Gap 15 Estim Creat Clear Calc 46.8 Estimated GFR 41 Random Glucose 162 H Lactic Acid Calcium 8.0 L Magnesium Total Bilirubin AST ALT Alkaline Phosphatase Total Creatine Kinase Total Protein Albumin Urine Color YELLOW Urine Appearance CLOUDY Urine pH 6.0 Ur Specific [place] 1.020 Urine Protein 1+ H Urine Glucose (UA) NEG Urine Ketones NEG Urine Blood 2+ H Urine Nitrite POS H Ur Leukocyte Esterase 3+ H Urine RBC 0-2 Urine WBC 76-150 H Ur Squamous Epith Cells TRACE Urine Bacteria 4+ Granular Casts 0-2 Urine Mucus TRACE COVID-19 (NUSRAT) COVID-19 Clin Com Imaging Radiologist's Impressions: Impressions Head CT 04/17/21 21:22 IMPRESSION: No acute intracranial pathology. Shoulder X-Ray 04/17/21 21:29 IMPRESSION: Mild degenerative changes left AC joint with inferior acromial moderate to large enthesophytes. No acute fracture or dislocation seen. Assessment and Plan (1) UTI (urinary tract infection): Qualifiers: Hematuria presence: without hematuria Urinary tract infection type: acute cystitis Qualified Code(s): N30.00 - Acute cystitis without hematuria Status: Acute (2) Rhabdomyolysis: Qualifiers: Encounter type: initial encounter Rhabdomyolysis type: traumatic [place] lified Code(s): T79.6XXA - Traumatic ischemia of muscle, initial encounter Status: Acute (3) Acute renal failure: Qualifiers: Acute renal failure type: with acute tubular necrosis Qualified Code(s): N17.0 - Acute kidney failure with tubular necrosis Status: Acute 80-year-old female with past medical history of hypothyroidism, hypertension presents to the hospital after experiencing a fall found to have LISBETH UTI as well as rhabdomyolysis # UTI - has urinary frequency - afebrile - has leukocytosis - start IV antibiotics - follow cultures # LISBETH - secondary to dehydration as well as rhabdomyolysis - will start on IV fluid - follow BMP # rhabdomyolysis - secondary to fall - will start IV fluids - follow CPK # fall - according to the patient was mechanical - denies any loss of consciousness, no dizziness, no headache or change in vision, no numbness weakness or tingling - to be evaluated by PT OT prior to discharge # hypothyroidism - continue levothyroxine # AFib - continue warfarin and diltiazem DVT prophylaxis: Warfarin Quality Stroke Does the patient have a stroke diagnosis?: No VTE Prior VTE?: No VTE Risk Level:: Medical - moderate - high VTE Device Contraindication: Treatment Not Indicated VTE Drug Contraindication: N/A - Med Ordered
[2021-04-18] MEDS: Potassium Chloride Packet 20 MEQ PACKET 40 MEQ PO (07:18)
--- NOTE | 2021-04-18 08:05 | PHA.MEDREC ---
Pharmacy Consult ? Medication Reconciliation Pharmacy has completed the medication reconciliation. Patient was able to verify all medications, but unsure of all the directions. Spoke with [facility] to confirm directions of medications that required multiple tablets a day. Patient reports that she is no longer taking furosemide and she also stopped taking all vitmains. Brittany Tyson, PharmD
[2021-04-18 11:38] LABS: INTERNATIONAL NORM RATIO 1.9 (0.9-1.1); Prothrombin Time 21.8 SEC (9.9-13.0)
[2021-04-18] MEDS: buPROPion HCl XL 300 MG TAB.ER.24H PO (11:45)
[2021-04-18] MEDS: atenoloL 100 MG TABLET PO (11:45)
[2021-04-18] MEDS: dilTIAZem HCL CD 180 MG CAP.ER.24H PO ×2 (11:45→20:50)
--- NOTE | 2021-04-18 13:48 | MHC.CM.PN ---
Met with patient in regards to discharge planning. Patient lives alone, ambulates with a cane at times and has [employer] hours through [facility]. PCP verified as Dr Reggie Johnston. Copy of HCP requested from [facility]. IMM explained and signed. Patient received Pfizer on 10/11 and 11/01. Patient's daughter will transport patient home when medically stable. Continue to monitor for d/c needs.
[2021-04-18] MEDS: Warfarin Sodium 2.5 MG TABLET PO (17:29)
[2021-04-18] MEDS: cefTRIAXone sodium 1 GM in 0.9 % Sodium Chloride 50 ML IV (20:50)
[2021-04-18] MEDS: 0.9 % Sodium Chloride Flush 3 ML SYRINGE IVFLUSH (20:51)
[2021-04-18] MEDS: Atorvastatin Calcium 20 MG TABLET PO (20:51)
[2021-04-18] MEDS: hydrOXYzine HCL 10 MG TABLET PO (20:51)
[2021-04-18] MEDS: Acetaminophen 325 MG TABLET 650 MG PO (20:55)
[2021-04-19] VITALS (8 sets, daily range): BP systolic 133–172; BP diastolic 62–79; PULSE 64–89; RESP 18–20; TEMP 36.1–37.3; O2SAT 91–95
[2021-04-19 06:13] LABS: Hematocrit 32.9 % (37-47); Hemoglobin 10.8 g/dl (12.0-16.0); Mean Corpuscular HGB Conc 32.8 g/dl (31.0-35.0); Mean Corpuscular Hemoglobin 29.5 pg (27.0-33.0); Mean Corpuscular Volume 89.9 fL (80-98); Mean Platelet Volume 10.1 fL (9.4-12.3); Platelet Count 197 X10*3/uL (160-400); Red Blood Count 3.66 X10*6/uL (4.20-5.50); White Blood Count 12.7 X10*3/uL (4.8-10.8)
[2021-04-19 06:21] LABS: INTERNATIONAL NORM RATIO 2.1 (0.9-1.1); Prothrombin Time 24.1 SEC (9.9-13.0)
[2021-04-19] MEDS: Lactated Ringers 1,000 ML 125 ML IVCONT (06:42)
[2021-04-19] MEDS: hydroCHLOROthiazide 25 MG TABLET PO (07:35)
[2021-04-19] MEDS: Doxazosin Mesylate 2 MG TABLET PO (07:35)
[2021-04-19] MEDS: buPROPion HCl XL 300 MG TAB.ER.24H PO (07:35)
[2021-04-19] MEDS: dilTIAZem HCL CD 180 MG CAP.ER.24H PO ×2 (07:36→21:32)
[2021-04-19] MEDS: atenoloL 100 MG TABLET PO (07:36)
[2021-04-19] MEDS: Fluticasone Propionate Nasal 16 GM SPRAY 1 SPRAY NOSTRIL-B (07:37)
[2021-04-19] MEDS: lisinopriL 40 MG TABLET PO (07:43)
[2021-04-19] MEDS: Levothyroxine Sodium 112 MCG TABLET PO (07:43)
--- NOTE | 2021-04-19 09:15 | HO.PM.IMPN ---
Subjective Subjective Date of Service: 04/21/21 Interval History: f/u on fall, rahbdo, and lisbeth, cpk trending down Review of Systems Gen: no fever Resp: no sob, no cough CV: no chest, no EDUARDO, no leg edema GI: No n/v, no abd pain Neuro: No confusion Physical Exam Vital Signs: Vital Signs: Last Vital Signs Temp 98.6 F 04/19/21 07:17 Pulse 73 04/19/21 07:17 Resp 20 04/19/21 07:17 BP 171/77 H 04/19/21 07:17 Pulse Ox 95 04/19/21 07:17 Body Mass Index 38.7 Objective Data Active Medications Acetaminophen (Acetaminophen 325 Mg Tablet) 650 mg PO Q6H PRN PRN Reason: Pain, Mild (Pain Scale 1-3) Last Admin: 04/18/21 20:55 Dose: 650 mg Documented by: CECIL Acetaminophen (Acetaminophen 325 Mg Tablet) 650 mg PO Q6H PRN PRN Reason: pain Albuterol/Ipratropium (Albuterol/Iprat 2.5/0.5mg 3 Ml Ampul.Neb) 3 ml INHALE RQ4H PRN PRN Reason: Wheezing Atenolol (Atenolol 100 Mg Tablet) 100 mg PO DAILY [facility]; Protocol Last Admin: 04/19/21 07:36 Dose: 100 mg Documented by: BRYAN Atorvastatin Calcium (Atorvastatin Calcium 20 Mg Tablet) 20 mg PO BEDTIME [facility] Last Admin: 04/18/21 20:51 Dose: 20 mg Documented by: CECIL Bupropion HCl (Bupropion Hcl Xl 300 Mg Tab.Er.24h) 300 mg PO DAILY [facility] Last Admin: 04/19/21 07:35 Dose: 300 mg Documented by: BRYAN Diltiazem HCl (Diltiazem Hcl Cd 180 Mg Cap.Er.24h) 180 mg PO BID [facility]; Protocol Last Admin: 04/19/21 07:36 Dose: 180 mg Documented by: BRYAN Docusate Sodium (Docusate Sodium 100 Mg Capsule) 100 mg PO DAILY PRN PRN Reason: Constipation Doxazosin Mesylate (Doxazosin Mesylate 2 Mg Tablet) 2 mg PO DAILY [facility]; Protocol Last Admin: 04/19/21 07:35 Dose: 2 mg Documented by: BRYAN Fluticasone Propionate (Fluticasone Propionate Nasal 16 Gm [place]) 1 spray NOSTRIL-B DAILY [facility] Last Admin: 04/19/21 07:37 Dose: 1 spray Documented by: BRYAN Hydrochlorothiazide (Hydrochlorothiazide 25 Mg Tablet) 25 mg PO DAILY [facility] Last Admin: 04/19/21 07:35 Dose: 25 mg Documented by: BRYAN Hydroxyzine HCl (Hydroxyzine Hcl 10 Mg Tablet) 10 mg PO BEDTIME [facility] Last Admin: 04/18/21 20:51 Dose: 10 mg Documented by: CECIL Lactated Ringer's (Lr) 1,000 mls @ 125 mls/hr IVCONT .Q8H [facility] Last Admin: 04/19/21 06:42 Dose: 125 mls/hr Documented by: YENIFER Ceftriaxone Sodium 1 gm/ (Sodium Chloride) 50 mls @ 100 mls/hr IV Q24H [facility] Last Infusion: 04/18/21 21:36 Dose: 0 mls/hr Documented by: CECIL Lactated Ringer's (Lr) 1,000 mls @ 100 mls/hr IVCONT .Q10H [facility] Last Admin: 04/19/21 06:42 Dose: Not Given Documented by: YENIFER Non-Admin Reason: IV Running Levothyroxine Sodium (Levothyroxine Sodium 112 Mcg Tablet) 112 mcg PO DAILY [facility] Last Admin: 04/19/21 07:43 Dose: 112 mcg Documented by: BRYAN Lisinopril (Lisinopril 40 Mg Tablet) 40 mg PO DAILY [facility]; Protocol Last Admin: 04/19/21 07:43 Dose: 40 mg Documented by: BRYAN Ondansetron HCl (Ondansetron Hcl 4 Mg/2 Ml Vial) 4 mg IVPUSH Q8H PRN PRN Reason: Nausea and Vomiting Sodium Chloride (0.9 % Sodium Chloride Flush 3 Ml Syringe) 3 ml IVFLUSH QSHIFT [facility] Last Admin: 04/19/21 07:37 Dose: Not Given Documented by: BRYAN Non-Admin Reason: IV Running Warfarin Sodium (Warfarin Sodium 2.5 Mg Tablet) 2.5 mg PO DAILY@1800 [facility] Last Admin: 04/18/21 17:29 Dose: 2.5 mg Documented by: HO.[email or web address] Labs CBC & Chem 7: 04/19/21 05:41 04/21/21 05:38 Labs: Laboratory Results - last 24 hr 04/18/21 04/18/21 04/19/21 05:53 11:28 05:41 MCV MCH MCHC RDW Plt Count MPV Absolute Nucleated RBC Nucleated RBC % (auto) PT 21.8 H 24.1 H INR 1.9 H 2.1 H Total Creatine Kinase 7148 H 04/19/21 04/19/21 05:41 05:41 MCV 89.9 MCH 29.5 MCHC 32.8 RDW 14.0 Plt Count 197 MPV 10.1 Absolute Nucleated RBC 0.000 Nucleated RBC % (auto) 0.0 PT INR Total Creatine Kinase 1953 H D Microbiology Microbiology Results: Microbiology 04/17/21 22:22 Blood Culture - Preliminary Blood - Venous No growth after 24 hours. 04/17/21 21:48 Blood Culture - Preliminary Blood - Venous Assessment and Plan (1) Rhabdomyolysis: Status: Acute (2) UTI (urinary tract infection): Status: Acute Assessment and Plan: 80-year-old female with past medical history of hypothyroidism, hypertension presents to the hospital after experiencing a fall found to have LISBETH UTI as well as rhabdomyolysis # UTI- no fever, BCx negative, Urine culture pending. Ceftriaxone D2/5, ceftin at discharge # LISBETH--pre-renal, resolved with IVF,monitor for pigment nephropathy from rhabdo # rhabdomyolysis d/t fall CPK, 9000 (04/17)-->7000 (04/18)-->1900 today(04/19) -reduce IVF, repeat CPK tomorrow # Mechacnical fall, no other injuries. PT/OT eval before d/c # hypothyroidism - continue levothyroxine # Chronic AFib, rate controlled on diltiazem, coumadin for stroke prevention, INR 2.1 DVT prophylaxis:? Warfarin Quality Stroke Does the patient have a stroke diagnosis?: No VTE Prior VTE?: No VTE Risk Level:: Medical - moderate - high VTE Device Contraindication: Treatment Not Indicated VTE Drug Contraindication: N/A - Med Ordered
[2021-04-19] MEDS: Lactated Ringers 1,000 ML 50 ML IVCONT (09:38)
[2021-04-19] MEDS: Furosemide 20 MG/2 ML VIAL IVPUSH (09:39)
[2021-04-19 11:05] LABS: Anion Gap 14 (12-20); Blood Urea Nitrogen 26 mg/dL (9-16); Calcium 7.9 mg/dL (8.4-10.2); Carbon Dioxide 23 mmol/L (22-29); Chloride 103 mmol/L (96-108); Creatinine Clr Calc Pharmacy 45.6; Estimated Glomerular Filt Rate 40; Glucose Random 116 mg/dL (60-115); Potassium 3.3 mmol/L (3.3-5.1); Sodium 137 mmol/L (135-145)
[2021-04-19] MEDS: Warfarin Sodium 2.5 MG TABLET PO (17:58)
[2021-04-19] MEDS: cefTRIAXone sodium 1 GM in 0.9 % Sodium Chloride 50 ML IV (21:31)
[2021-04-19] MEDS: Atorvastatin Calcium 20 MG TABLET PO (21:33)
[2021-04-19] MEDS: hydrOXYzine HCL 10 MG TABLET PO (21:33)
[2021-04-20] VITALS (7 sets, daily range): BP systolic 105–134; BP diastolic 51–74; PULSE 69–102; RESP 18; TEMP 36.3–36.7; O2SAT 92–95
[2021-04-20] MEDS: Lactated Ringers 1,000 ML 50 ML IVCONT (05:39)
[2021-04-20 05:47] LABS: INTERNATIONAL NORM RATIO 2.3 (0.9-1.1); Prothrombin Time 26.4 SEC (9.9-13.0)
[2021-04-20] MEDS: dilTIAZem HCL CD 180 MG CAP.ER.24H PO ×2 (07:37→19:56)
[2021-04-20] MEDS: Doxazosin Mesylate 2 MG TABLET PO (07:37)
[2021-04-20] MEDS: buPROPion HCl XL 300 MG TAB.ER.24H PO (07:38)
[2021-04-20] MEDS: lisinopriL 40 MG TABLET PO (07:38)
[2021-04-20] MEDS: hydroCHLOROthiazide 25 MG TABLET PO (07:38)
[2021-04-20] MEDS: Levothyroxine Sodium 112 MCG TABLET PO (07:38)
[2021-04-20] MEDS: atenoloL 100 MG TABLET PO (07:38)
[2021-04-20] MEDS: Fluticasone Propionate Nasal 16 GM SPRAY 1 SPRAY NOSTRIL-B (07:39)
--- NOTE | 2021-04-20 12:32 | HO.PM.IMPN ---
Subjective Subjective Date of Service: 04/20/21 Interval History: urinary symptoms resolved c/o muscle weakness; no pain no nausea Review of Systems Review of Systems: Yes all other systems are reviewed and are negative Physical Exam Vital Signs: Vital Signs: Last Vital Signs Temp 97.3 F 04/20/21 11:56 Pulse 74 04/20/21 11:56 Resp 18 04/20/21 11:56 BP 105/56 L 04/20/21 11:56 Pulse Ox 95 04/20/21 11:56 Body Mass Index 38.7 Gen: in no acute distress HEENT: sclera anicteric, moist mucus membranes Neck: supple Lungs: clear to auscultation bilaterally Heart: regular rate and rhythm, no murmurs Abd: soft, non-tender, non-distended, obese Ext: no edema Skin: warm/well-perfused Neuro: alert and oriented x3, no focal findings Psych: appropriate affect Objective Data Active Medications Acetaminophen (Acetaminophen 325 Mg Tablet) 650 mg PO Q6H PRN PRN Reason: Pain, Mild (Pain Scale 1-3) Last Admin: 04/18/21 20:55 Dose: 650 mg Documented by: CECIL Acetaminophen (Acetaminophen 325 Mg Tablet) 650 mg PO Q6H PRN PRN Reason: pain Albuterol/Ipratropium (Albuterol/Iprat 2.5/0.5mg 3 Ml Ampul.Neb) 3 ml INHALE RQ4H PRN PRN Reason: Wheezing Atenolol (Atenolol 100 Mg Tablet) 100 mg PO DAILY [facility]; Protocol Last Admin: 04/20/21 07:38 Dose: 100 mg Documented by: BRYAN Atorvastatin Calcium (Atorvastatin Calcium 20 Mg Tablet) 20 mg PO BEDTIME [facility] Last Admin: 04/19/21 21:33 Dose: 20 mg Documented by: MAURO Bupropion HCl (Bupropion Hcl Xl 300 Mg Tab.Er.24h) 300 mg PO DAILY [facility] Last Admin: 04/20/21 07:38 Dose: 300 mg Documented by: BRYAN Diltiazem HCl (Diltiazem Hcl Cd 180 Mg Cap.Er.24h) 180 mg PO BID [facility]; Protocol Last Admin: 04/20/21 07:37 Dose: 180 mg Documented by: BRYAN Docusate Sodium (Docusate Sodium 100 Mg Capsule) 100 mg PO DAILY PRN PRN Reason: Constipation Doxazosin Mesylate (Doxazosin Mesylate 2 Mg Tablet) 2 mg PO DAILY [facility]; Protocol Last Admin: 04/20/21 07:37 Dose: 2 mg Documented by: BRYAN Fluticasone Propionate (Fluticasone Propionate Nasal 16 Gm [place]) 1 spray NOSTRIL-B DAILY [facility] Last Admin: 04/20/21 07:39 Dose: 1 spray Documented by: BRYAN Hydrochlorothiazide (Hydrochlorothiazide 25 Mg Tablet) 25 mg PO DAILY [facility] Last Admin: 04/20/21 07:38 Dose: 25 mg Documented by: BRYAN Hydroxyzine HCl (Hydroxyzine Hcl 10 Mg Tablet) 10 mg PO BEDTIME [facility] Last Admin: 04/19/21 21:33 Dose: 10 mg Documented by: MAURO Ceftriaxone Sodium 1 gm/ (Sodium Chloride) 50 mls @ 100 mls/hr IV Q24H [facility] Last Infusion: 04/19/21 22:13 Dose: 0 mls/hr Documented by: MAURO Lactated Ringer's (Lr) 1,000 mls @ 50 mls/hr IVCONT .Q20H [facility] Last Admin: 04/20/21 05:39 Dose: 50 mls/hr Documented by: YENIFER Sodium Chloride (Ns) 1,000 mls @ 50 mls/hr IVCONT .Q20H [facility] Stop: 04/21/21 10:29 Levothyroxine Sodium (Levothyroxine Sodium 112 Mcg Tablet) 112 mcg PO DAILY [facility] Last Admin: 04/20/21 07:38 Dose: 112 mcg Documented by: BRYAN Lisinopril (Lisinopril 40 Mg Tablet) 40 mg PO DAILY [facility]; Protocol Last Admin: 04/20/21 07:38 Dose: 40 mg Documented by: BRYAN Ondansetron HCl (Ondansetron Hcl 4 Mg/2 Ml Vial) 4 mg IVPUSH Q8H PRN PRN Reason: Nausea and Vomiting Sodium Chloride (0.9 % Sodium Chloride Flush 3 Ml Syringe) 3 ml IVFLUSH QSHIFT [facility] Last Admin: 04/20/21 09:34 Dose: Not Given Documented by: BRYAN Non-Admin Reason: IV Running Warfarin Sodium (Warfarin Sodium 2.5 Mg Tablet) 2.5 mg PO DAILY@1800 [facility] Last Admin: 04/19/21 17:58 Dose: 2.5 mg Documented by: MAURO Labs CBC & Chem 7: 04/19/21 05:41 04/19/21 05:41 Labs: Laboratory Results - last 24 hr 04/20/21 04:39 PT 26.4 H INR 2.3 H Microbiology Microbiology Results: Microbiology 04/17/21 21:48 Blood Culture - Final Blood - Venous Klebsiella pneumoniae 04/18/21 Unknown Urine Culture - Final Urine clean catch - Urine bernard top Klebsiella pneumoniae 04/17/21 22:22 Blood Culture - Preliminary Blood - Venous No growth after 48 hours. Assessment and Plan (1) Rhabdomyolysis: Status: Acute (2) UTI (urinary tract infection): Status: Acute (3) Bacteremia: Status: Acute Assessment and Plan: hospital d#3 80yo F with AF on warfarin, HTN, hypothyroidism presented after fall, down on ground for 4hr admitted for LISBETH with rhabdomyolysis, UTI; found to have bacteremia # Klebsiella UTI/bacteremia [resistant to ampicillin + nitrofurantoin, sensitive to ceftriaxone] - ceftriaxone d#09/08, change to cefuroxime upon dischaged # LISBETH - prerenal, SCr resolved # rhabdomyolysis - CPK falling appropriately, continue IV hydration, repeat CPK + BMP in am # chronic AF - continue diltiazem + atenolol - continue warfarin; INR therapeutic # HTN - continue diltiazem + atenolol + lisinopril + HCTZ + doxazosin # hypothyroidism - continue LT4 # mood disorder - continue bupropion + hydroxyzine # VTE ppx - warfarin # dispo - PT recommends STR; check COVID-19 NAAT for placement Quality Stroke Does the patient have a stroke diagnosis?: No VTE Prior VTE?: No VTE Risk Level:: Medical - moderate - high VTE Device Contraindication: Treatment Not Indicated VTE Drug Contraindication: N/A - Med Ordered
[2021-04-20] MEDS: 0.9 % Sodium Chloride 1,000 ML 50 ML IVCONT (16:43)
[2021-04-20] MEDS: Warfarin Sodium 2.5 MG TABLET PO (17:22)
[2021-04-20] MEDS: cefTRIAXone sodium 1 GM in 0.9 % Sodium Chloride 50 ML IV (19:55)
[2021-04-20] MEDS: hydrOXYzine HCL 10 MG TABLET PO (19:55)
[2021-04-20] MEDS: Atorvastatin Calcium 20 MG TABLET PO (19:56)
[2021-04-21] VITALS (11 sets, daily range): BP systolic 120–158; BP diastolic 54–78; PULSE 62–92; RESP 18–19; TEMP 36.1–36.8; O2SAT 94–95
[2021-04-21 05:58] LABS: INTERNATIONAL NORM RATIO 2.3 (0.9-1.1); Prothrombin Time 27.1 SEC (9.9-13.0)
[2021-04-21 06:14] LABS: Anion Gap 15 (12-20); Blood Urea Nitrogen 24 mg/dL (9-16); Calcium 8.3 mg/dL (8.4-10.2); Carbon Dioxide 26 mmol/L (22-29); Chloride 102 mmol/L (96-108); Creatinine Clr Calc Pharmacy 39.5; Estimated Glomerular Filt Rate 34; Glucose Random 119 mg/dL (60-115); Potassium 2.7 mmol/L (3.3-5.1); Sodium 140 mmol/L (135-145)
[2021-04-21] MEDS: Doxazosin Mesylate 2 MG TABLET PO (08:58)
[2021-04-21] MEDS: lisinopriL 40 MG TABLET PO (08:58)
[2021-04-21] MEDS: dilTIAZem HCL CD 180 MG CAP.ER.24H PO ×2 (08:59→20:49)
[2021-04-21] MEDS: buPROPion HCl XL 300 MG TAB.ER.24H PO (08:59)
[2021-04-21] MEDS: hydroCHLOROthiazide 25 MG TABLET PO (08:59)
[2021-04-21] MEDS: Levothyroxine Sodium 112 MCG TABLET PO (08:59)
[2021-04-21] MEDS: atenoloL 100 MG TABLET PO (09:00)
--- NOTE | 2021-04-21 10:23 | PM.DS ---
DS: Providers Provider Date of Service: 04/22/21 Date of admission: 04/18/21 00:27 Primary care physician: Jackie Johnston MD DS: Diagnosis Discharge Diagnosis (1) Rhabdomyolysis: Status: Acute (2) UTI (urinary tract infection): Status: Acute DS: Summary Hospital Course Hospital Course: Chief Complaint: Fall out of bed This is a 80-year-old female with past medical history of AFib, arthritis, hyperlipidemia, hypertension and hypothyroidism presents to the hospital after slipping and falling out of her bed.? Patient reports that she was on the floor for 10 minutes but the previous night similar incident occurred where she was on the floor for over 10 hours, but refused to come to the hospital.? She , denies any head injury, denies any dizziness, weakness, numbness, tingling.? She denies any headache or change in vision.? She denies any chest pain or palpitations.? She reports shortness of breath with no cough or sputum production, no lower extremity edema, no orthopnea or PND. Patient vitals are significant for a temp of 98.1?, heart rate of 110, respiratory rate of 18, blood pressure 133/75, satting 95% on room air Labs are significant for WBC count 21, PT of 20, INR of 1.8, potassium 3.0, BUN of 23, creatinine of 1.6 with a baseline of 1.1, elevated AST ALT, CPK of 9568, UA positive for nitrites, leukocyte Estrace, WBC. Head CT negative Shoulder x-ray shows no acute fracture or dislocation Patient will be admitted for management of UTI, rhabdo as well as LISBETH Hospital course: Patient presented to the hospital with multiple falls, one of them resulting in her been on the floor for nearly 10 hours. On presentation was found to have acute renal failure, and traumatic rhabdomylosis with CPK of 9568 and creatinine of 1.60. Additionally, she has UTI and ultimately developped bacteremia due to Klebsieal Pneumoniae. 1/ Rhabdomylosis due to fall and prolonaged stay of the floor. Treatment consisted of IVF fluid and gradually CPK level dropped to 561 as of 04/21/21. 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 Creatine has come down to 1.32 3/HypOkalemia--potassium level was presently 2.9, she was given 40 meq of potassium this moring and will getting a second dose before discharge and recommend repeat level tomorrow and additional supplment given as needed. 4/Klebsiella Pneumoniae bacteremia and UTI--Sentistive to Ceftriacone, she has been treated in the hospital for 5 days and will treat for a total of 14 days of antibotics to be completed with Ceftin 500 mg twice daily 5/chronic Atrial fibrilation, to continue Atenolol and Coumdin for stroke prevention, INR goal of 2 to 3, today 2.4 6/HTN - continue diltiazem + atenolol + lisinopril + HCTZ + doxazosin 7/ hypothyroidism - continue Levothyroxine 8/mood disorder- continue bupropion + hydroxyzine Final diagnoses: Traumatic rhabdomyolysis Acute renal insufficiency Klebsiella bacteremia UTI Hypokalemia Hypertension Chronic atrial fibrillation Mood disorder Hypothyroidism Time Spent with Patient Time attestation: Total time spent providing and/or coordinating discharge services: Discharge coordination time: Greater than 30 minutes Quality: Stroke Does the patient have a stroke diagnosis?: No Physical Exam Vital Signs: Vital Signs: Selected Entries 04/22/21 15:35 Temperature 97.7 F Pulse Rate 64 Respiratory Rate 19 Blood Pressure 150/74 H Pulse Oximetry 94 Oxygen Delivery Me thod Room Air DS: Data Data Completed and Pending Labs on day of discharge: Laboratory Results - last 24 hr 04/21/21 04/21/21 05:38 05:38 PT 27.1 H INR 2.3 H Sodium 140 Potassium 2.7 L Chloride 102 Carbon Dioxide 26 Anion Gap 15 BUN 24 H Creatinine 1.49 H Estim Creat Clear Calc 39.5 Estimated GFR 34 Random Glucose 119 H Calcium 8.3 L Total Creatine Kinase 561 H D Preliminary micro results at discharge 04/17/21 22:22 Blood Culture - Preliminary Blood - Venous No growth after 48 hours. Discharge Plan Discharge Anticipated Discharge Date/Time: 04/22/21 16:29 Patient Disposition: Home, Self-Care Discharge Diagnosis: rhabdomylosis, LISBETH, UTI and bacteremia Referrals: [facility] [Outside] - 1 Day (SHORT TERM REHAB) Jackie Snyder MD [Primary Care Provider] - 1 Week Discharge Medications: New cefuroxime axetil 500 mg tablet 500 mg PO BID 10 Days Qty: 20 RF: 0 Continued atenolol 50 mg tablet 100 mg PO DAILY RF: 0 doxazosin 2 mg tablet 2 mg PO DAILY RF: 0 diltiazem HCl 180 mg capsule,ext.rel 24h degradable 180 mg PO BID RF: 0 levothyroxine 112 mcg capsule 112 mcg PO DAILY RF: 0 atorvastatin 20 mg tablet 20 mg PO BEDTIME RF: 0 warfarin 2.5 mg tablet 2.5 mg PO DAILY@1800 RF: 0 bupropion HCl [Wellbutrin SR] 150 mg tablet sustained-release 12 hr 150 mg PO BID RF: 0 fluticasone propionate 50 mcg/actuation spray,suspension 1 spray intranasal DAILY RF: 0 hydroxyzine HCl 10 mg tablet 10 mg PO BEDTIME RF: 0 indapamide 1.25 mg tablet 1.25 mg PO QAM RF: 0 acetaminophen [Tylenol] 325 mg capsule 650 mg PO Q6H PRN (Reason: pain) RF: 0 Discontinued lisinopril 40 mg tablet 40 mg PO DAILY RF: 0 Discharge Orders: Discharge Order (Routine); Ordered 04/21/21 Ordered By: Stepan Carroll Diet: advance to usual diet and regular diet Activity on Discharge: As tolerated Stand Alone Forms: Patient Portal Discharge page Other Ambulatory Orders: Basic Metabolic Panel (Routine) Timeframe: 20200424 Facility: [facility] - Location: Laboratory Ordered By: Stepan Carroll Care Plan Goals: Full recovery from UTI, bacteremia, and rhabdomylosis Health Concerns: renal failure, bacterermia, UTI Plan of Treatment: Take Cefuroximine for UTI and bacteremia (blood poisoning) Drink plenty of fluid Check potassium level tomorrow and give additional potassium if neede follow up with your Doctor in a week Follow, INR goal of 2 to 3, INR is 2.7 today Assessment: As above
--- NOTE | 2021-04-21 10:27 | HO.PM.IMPN ---
Subjective Subjective Date of Service: 04/21/21 Interval History: Seen in f/u for renal failure and rehabdomylosis Review of Systems Gen: no fever Resp: no sob, no cough CV: no chest, no EDUARDO, no leg edema GI: No n/v, no abd pain Neuro: No confusion Physical Exam Vital Signs: Vital Signs: Last Vital Signs Temp 98.0 F 04/21/21 07:44 Pulse 82 04/21/21 09:00 Resp 19 04/21/21 07:44 BP 158/78 H 04/21/21 09:00 Pulse Ox 94 04/21/21 07:44 Body Mass Index 38.7 General: AO X 3, no acute distress Resp: CTA bilateral CVS: S1,S2,RRR GI: +BS, NT, no distention Skin: No rash Neuro: motor grossly intact Psych: appropriate affect Objective Data Active Medications Acetaminophen (Acetaminophen 325 Mg Tablet) 650 mg PO Q6H PRN PRN Reason: Pain, Mild (Pain Scale 1-3) Last Admin: 04/18/21 20:55 Dose: 650 mg Documented by: CECIL Acetaminophen (Acetaminophen 325 Mg Tablet) 650 mg PO Q6H PRN PRN Reason: pain Albuterol/Ipratropium (Albuterol/Iprat 2.5/0.5mg 3 Ml Ampul.Neb) 3 ml INHALE RQ4H PRN PRN Reason: Wheezing Atenolol (Atenolol 100 Mg Tablet) 100 mg PO DAILY [facility]; Protocol Last Admin: 04/21/21 09:00 Dose: 100 mg Documented by: LAZ Atorvastatin Calcium (Atorvastatin Calcium 20 Mg Tablet) 20 mg PO BEDTIME [facility] Last Admin: 04/20/21 19:56 Dose: 20 mg Documented by: MAURO Bupropion HCl (Bupropion Hcl Xl 300 Mg Tab.Er.24h) 300 mg PO DAILY [facility] Last Admin: 04/21/21 08:59 Dose: 300 mg Documented by: LAZ Diltiazem HCl (Diltiazem Hcl Cd 180 Mg Cap.Er.24h) 180 mg PO BID [facility]; Protocol Last Admin: 04/21/21 08:59 Dose: 180 mg Documented by: LAZ Docusate Sodium (Docusate Sodium 100 Mg Capsule) 100 mg PO DAILY PRN PRN Reason: Constipation Doxazosin Mesylate (Doxazosin Mesylate 2 Mg Tablet) 2 mg PO DAILY [facility]; Protocol Last Admin: 04/21/21 08:58 Dose: 2 mg Documented by: LAZ Fluticasone Propionate (Fluticasone Propionate Nasal 16 Gm [place]) 1 spray NOSTRIL-B DAILY [facility] Last Admin: 04/21/21 10:03 Dose: Not Given Documented by: DALTON Non-Admin Reason: Patient Refused Hydrochlorothiazide (Hydrochlorothiazide 25 Mg Tablet) 25 mg PO DAILY [facility] Last Admin: 04/21/21 08:59 Dose: 25 mg Documented by: LAZ Hydroxyzine HCl (Hydroxyzine Hcl 10 Mg Tablet) 10 mg PO BEDTIME [facility] Last Admin: 04/20/21 19:55 Dose: 10 mg Documented by: MAURO Ceftriaxone Sodium 1 gm/ (Sodium Chloride) 50 mls @ 100 mls/hr IV Q24H [facility] Last Infusion: 04/20/21 20:31 Dose: 0 mls/hr Documented by: MAURO Sodium Chloride (Ns) 1,000 mls @ 50 mls/hr IVCONT .Q20H [facility] Stop: 04/21/21 10:29 Last Admin: 04/20/21 16:43 Dose: 50 mls/hr Documented by: MAURO Levothyroxine Sodium (Levothyroxine Sodium 112 Mcg Tablet) 112 mcg PO DAILY [facility] Last Admin: 04/21/21 08:59 Dose: 112 mcg Documented by: LAZ Lisinopril (Lisinopril 40 Mg Tablet) 40 mg PO DAILY [facility]; Protocol Last Admin: 04/21/21 08:58 Dose: 40 mg Documented by: LAZ Ondansetron HCl (Ondansetron Hcl 4 Mg/2 Ml Vial) 4 mg IVPUSH Q8H PRN PRN Reason: Nausea and Vomiting Sodium Chloride (0.9 % Sodium Chloride Flush 3 Ml Syringe) 3 ml IVFLUSH QSHIFT [facility] Last Admin: 04/21/21 09:01 Dose: Not Given Documented by: LAZ Non-Admin Reason: IV Running Warfarin Sodium (Warfarin Sodium 2.5 Mg Tablet) 2.5 mg PO DAILY@1800 [facility] Last Admin: 04/20/21 17:22 Dose: 2.5 mg Documented by: MAURO Labs CBC & Chem 7: 04/19/21 05:41 04/21/21 05:38 Labs: Laboratory Results - last 24 hr 04/17/21 04/18/21 04/19/21 20:29 05:53 05:41 PT INR Anion Gap Creatinine 1.60 H 1.26 1.29 Estim Creat Clear Calc Estimated GFR Random Glucose Calcium Total Creatine Kinase 04/21/21 04/21/21 05:38 05:38 PT 27.1 H INR 2.3 H Anion Gap 15 Creatinine 1.49 H Estim Creat Clear Calc 39.5 Estimated GFR 34 Random Glucose 119 H Calcium 8.3 L Total Creatine Kinase 561 H D Microbiology Microbiology Results: Microbiology 04/17/21 21:48 Blood Culture - Final Blood - Venous Klebsiella pneumoniae 04/18/21 Unknown Urine Culture - Final Urine clean catch - Urine bernard top Klebsiella pneumoniae Assessment and Plan (1) Rhabdomyolysis: Status: Acute (2) UTI (urinary tract infection): Status: Acute (3) Bacteremia: Status: Acute Assessment and Plan: hospital d#4 80yo F with AF on warfarin, HTN, hypothyroidism presented after fall, down on ground for 4hr admitted for LISBETH with rhabdomyolysis, UTI; found to have bacteremia # Klebsiella UTI/bacteremia [resistant to ampicillin + nitrofurantoin, sensitive to ceftriaxone] - ceftriaxone d#10/09, change to cefuroxime upon dischaged # LISBETH--creatine is slightly worse today, continue IVF #Hypokalemia--replete, chek Mag # rhabdomyolysis - CPK falling appropriately, continue IV hydration, CPK is down from 9000 to 500 now # chronic AF - continue diltiazem + atenolol - continue warfarin; INR therapeutic # HTN - continue diltiazem + atenolol + lisinopril + HCTZ + doxazosin # hypothyroidism - continue LT4 # mood disorder - continue bupropion + hydroxyzine # VTE ppx - warfarin # dispo - PT recommends STR; check COVID-19 NAAT for placement Quality Stroke Does the patient have a stroke diagnosis?: No VTE Prior VTE?: No VTE Risk Level:: Medical - moderate - high VTE Device Contraindication: Treatment Not Indicated VTE Drug Contraindication: N/A - Med Ordered
[2021-04-21] MEDS: Potassium Chloride/H20 10 MEQ/100 ML PIGGYBACK 100 MEQ IV ×2 (10:47→13:55)
[2021-04-21] MEDS: Potassium Chloride Packet 20 MEQ PACKET 40 MEQ PO ×2 (10:47→17:46)
[2021-04-21 11:02] LABS: Magnesium 1.8 mg/dL (1.6-2.6)
--- NOTE | 2021-04-21 13:18 | MHC.CM.PN ---
EMR REVIEWED, PER PHYSICAL THERAPY PT IS BEING RECOMMENDED STR, PT CURRENTLY DECLINING AND WILL ACCEPT HOME SERVICES, PT HAS NO PREFERENCE OF [facility] AND REFERRAL SENT TO [facility] AND [facility] HOWEVER BOTH ARE UNABLE TO ACCOMMODATE PT, CM TO SEND OUT ADDITIONAL REFERRALS.
[2021-04-21 14:18] LABS: Anion Gap 13 (12-20); Blood Urea Nitrogen 25 mg/dL (9-16); Calcium 8.1 mg/dL (8.4-10.2); Carbon Dioxide 28 mmol/L (22-29); Chloride 103 mmol/L (96-108); Creatinine Clr Calc Pharmacy 41.5; Estimated Glomerular Filt Rate 36; Glucose Random 132 mg/dL (60-115); Potassium 3.2 mmol/L (3.3-5.1); Sodium 141 mmol/L (135-145)
[2021-04-21] MEDS: Warfarin Sodium 2.5 MG TABLET PO (17:47)
[2021-04-21] MEDS: cefTRIAXone sodium 1 GM in 0.9 % Sodium Chloride 50 ML IV (20:48)
[2021-04-21] MEDS: Atorvastatin Calcium 20 MG TABLET PO (20:49)
[2021-04-21] MEDS: 0.9 % Sodium Chloride Flush 3 ML SYRINGE IVFLUSH (20:49)
[2021-04-21] MEDS: hydrOXYzine HCL 10 MG TABLET PO (20:49)
[2021-04-22] VITALS (7 sets, daily range): BP systolic 150–182; BP diastolic 71–87; PULSE 64–70; RESP 14–19; TEMP 35.9–36.5; O2SAT 94–95
[2021-04-22 05:07] LABS: INTERNATIONAL NORM RATIO 2.4 (0.9-1.1); Prothrombin Time 27.8 SEC (9.9-13.0)
[2021-04-22 07:42] LABS: Blood Urea Nitrogen 21 mg/dL (9-16); Calcium 8.2 mg/dL (8.4-10.2); Creatinine Clr Calc Pharmacy 44.6; Estimated Glomerular Filt Rate 39; Glucose Random 98 mg/dL (60-115)
[2021-04-22 08:03] LABS: Anion Gap 15 (12-20); Carbon Dioxide 25 mmol/L (22-29); Chloride 104 mmol/L (96-108); Potassium 2.8 mmol/L (3.3-5.1); Sodium 141 mmol/L (135-145)
--- NOTE | 2021-04-22 08:25 | HO.PM.IMPN ---
Subjective Subjective Date of Service: 04/22/21 Interval History: F/u on renal failure, rhabdo Review of Systems Gen: no fever Resp: no sob, no cough CV: no chest, no EDUARDO, no leg edema GI: No n/v, no abd pain Neuro: No confusion Physical Exam Vital Signs: Vital Signs: Last Vital Signs Temp 97.0 F 04/22/21 07:51 Pulse 67 04/22/21 07:51 Resp 18 04/22/21 07:51 BP 155/87 H 04/22/21 07:51 Pulse Ox 95 04/22/21 07:51 Body Mass Index 38.7 General: AO X 3, no acute distress Resp: CTA bilateral CVS: S1,S2,RRR GI: +BS, NT, no distention Skin: No rash Neuro: motor grossly intact Psych: appropriate affect Objective Data Active Medications Acetaminophen (Acetaminophen 325 Mg Tablet) 650 mg PO Q6H PRN PRN Reason: Pain, Mild (Pain Scale 1-3) Last Admin: 04/18/21 20:55 Dose: 650 mg Documented by: CECIL Acetaminophen (Acetaminophen 325 Mg Tablet) 650 mg PO Q6H PRN PRN Reason: pain Albuterol/Ipratropium (Albuterol/Iprat 2.5/0.5mg 3 Ml Ampul.Neb) 3 ml INHALE RQ4H PRN PRN Reason: Wheezing Atenolol (Atenolol 100 Mg Tablet) 100 mg PO DAILY [facility]; Protocol Last Admin: 04/21/21 09:00 Dose: 100 mg Documented by: LAZ Atorvastatin Calcium (Atorvastatin Calcium 20 Mg Tablet) 20 mg PO BEDTIME [facility] Last Admin: 04/21/21 20:49 Dose: 20 mg Documented by: KATHERINE Bupropion HCl (Bupropion Hcl Xl 300 Mg Tab.Er.24h) 300 mg PO DAILY [facility] Last Admin: 04/21/21 08:59 Dose: 300 mg Documented by: LAZ Diltiazem HCl (Diltiazem Hcl Cd 180 Mg Cap.Er.24h) 180 mg PO BID [facility]; Protocol Last Admin: 04/21/21 20:49 Dose: 180 mg Documented by: KATHERINE Docusate Sodium (Docusate Sodium 100 Mg Capsule) 100 mg PO DAILY PRN PRN Reason: Constipation Doxazosin Mesylate (Doxazosin Mesylate 2 Mg Tablet) 2 mg PO DAILY [facility]; Protocol Last Admin: 04/21/21 08:58 Dose: 2 mg Documented by: LAZ Fluticasone Propionate (Fluticasone Propionate Nasal 16 Gm [place]) 1 spray NOSTRIL-B DAILY [facility] Last Admin: 04/21/21 10:03 Dose: Not Given Documented by: DALTON Non-Admin Reason: Patient Refused Hydrochlorothiazide (Hydrochlorothiazide 25 Mg Tablet) 25 mg PO DAILY [facility] Last Admin: 04/21/21 08:59 Dose: 25 mg Documented by: LAZ Hydroxyzine HCl (Hydroxyzine Hcl 10 Mg Tablet) 10 mg PO BEDTIME [facility] Last Admin: 04/21/21 20:49 Dose: 10 mg Documented by: KATHERINE Ceftriaxone Sodium 1 gm/ (Sodium Chloride) 50 mls @ 100 mls/hr IV Q24H [facility] Last Infusion: 04/21/21 21:32 Dose: 0 mls/hr Documented by: KATHERINE Levothyroxine Sodium (Levothyroxine Sodium 112 Mcg Tablet) 112 mcg PO DAILY [facility] Last Admin: 04/21/21 08:59 Dose: 112 mcg Documented by: LAZ Lisinopril (Lisinopril 40 Mg Tablet) 40 mg PO DAILY [facility]; Protocol Last Admin: 04/21/21 08:58 Dose: 40 mg Documented by: LAZ Ondansetron HCl (Ondansetron Hcl 4 Mg/2 Ml Vial) 4 mg IVPUSH Q8H PRN PRN Reason: Nausea and Vomiting Sodium Chloride (0.9 % Sodium Chloride Flush 3 Ml Syringe) 3 ml IVFLUSH QSHIFT [facility] Last Admin: 04/21/21 20:49 Dose: 3 ml Documented by: KATHERINE Warfarin Sodium (Warfarin Sodium 2.5 Mg Tablet) 2.5 mg PO DAILY@1800 [facility] Last Admin: 04/21/21 17:47 Dose: 2.5 mg Documented by: DALTON Labs CBC & Chem 7: 04/19/21 05:41 04/22/21 Unknown Labs: Laboratory Results - last 24 hr 04/21/21 04/21/21 04/22/21 05:38 13:52 04:50 PT 27.8 H INR 2.4 H Anion Gap 13 Estim Creat Clear Calc 41.5 Estimated GFR 36 Random Glucose 132 H Calcium 8.1 L Magnesium 1.8 04/22/21 Unknown PT INR Anion Gap 15 Estim Creat Clear Calc 44.6 Estimated GFR 39 Random Glucose 98 Calcium 8.2 L Magnesium Assessment and Plan (1) Rhabdomyolysis: Status: Acute (2) UTI (urinary tract infection): Status: Acute (3) Bacteremia: Status: Acute Assessment and Plan: hospital d#5 80yo F with AF on warfarin, HTN, hypothyroidism presented after fall, down on ground for 4hr admitted for LISBETH with rhabdomyolysis, UTI; found to have bacteremia # Klebsiella UTI/bacteremia [resistant to ampicillin + nitrofurantoin, sensitive to ceftriaxone] - ceftriaxone d#514, change to cefuroxime upon dischaged # LISBETH--resolved, #Hypokalemia--K is 2.8 this morning, replete check mag # rhabdomyolysis - CPK falling appropriately, continue IV hydration, CPK is down from 9000 to 500 # chronic AF - continue diltiazem + atenolol - continue warfarin; INR therapeutic # HTN - continue diltiazem + atenolol + lisinopril + HCTZ + doxazosin # hypothyroidism - continue LT4 # mood disorder - continue bupropion + hydroxyzine # VTE ppx - warfarin # dispo - PT recommends STR, I concuur, she's refusing but finally is willing to go Quality Stroke Does the patient have a stroke diagnosis?: No VTE Prior VTE?: No VTE Risk Level:: Medical - moderate - high VTE Device Contraindication: Treatment Not Indicated VTE Drug Contraindication: N/A - Med Ordered
[2021-04-22 08:46] LABS: Magnesium 1.7 mg/dL (1.6-2.6)
--- NOTE | 2021-04-22 08:53 | MHC.CM.PN ---
CM SPOKE W/HOSPITALIST AND PT'S DTR CHRISTO (8:40AM [phone]) WHO BOTH REPORTED PT IS NOW WILLING TO GO TO STR, PER BOTH DTR'S PREFERENCE WILL BE TO [facility], REFERRAL HAD BEEN PLACED TO [facility] YESTERDAY, LISA HAS SENT THEM A MESSAGE VIA [employer] TO CHECK ON BED AVAILABILITY, LISA SPOKE W/ [facility] LIAISON AT 8:50AM [phone] AND SHE IS AWARE THERE WILL BE AN AUTH REQUEST FOR STR.
[2021-04-22] MEDS: 0.9 % Sodium Chloride Flush 3 ML SYRINGE IVFLUSH ×2 (09:09→16:41)
[2021-04-22] MEDS: hydroCHLOROthiazide 25 MG TABLET PO (09:09)
[2021-04-22] MEDS: Potassium Chloride ER 20 MEQ TAB.ER.PRT 40 MEQ PO (09:10)
[2021-04-22] MEDS: Doxazosin Mesylate 2 MG TABLET PO (09:11)
[2021-04-22] MEDS: Levothyroxine Sodium 112 MCG TABLET PO (09:12)
[2021-04-22] MEDS: dilTIAZem HCL CD 180 MG CAP.ER.24H PO (09:13)
[2021-04-22] MEDS: buPROPion HCl XL 300 MG TAB.ER.24H PO (09:13)
[2021-04-22] MEDS: lisinopriL 40 MG TABLET PO (09:14)
[2021-04-22] MEDS: atenoloL 100 MG TABLET PO (09:14)
[2021-04-22] MEDS: Fluticasone Propionate Nasal 16 GM SPRAY 1 SPRAY NOSTRIL-B (09:17)
--- NOTE | 2021-04-22 10:06 | P.CDIC_ITS ---
CDI Concurrent Query Documentation Clarification: PHYSICIAN'S DOCUMENTATION REQUEST Date of Query: 04/22/21 1007 Patient Name: Nayely Garsia Admit Date: 04/18/21 Dear Doctor, A review of the medical record indicates additional documentation may be needed. Please review below and update the documentation accordingly. Clinical Indicators: Risk Factors/Clinical Indicators/Treatments Patient fell was on the floor for over 4 hours, previous night was on the floor for 10 hours refused to go to the ED. UTI, LISBETH, Dehydration. CPK 9000 to 500 now. Mechanical fall, PT/OT evaluation prior to discharge. Based on the above, could you clarify in the Progress Notes the appropriate diagnosis, if significant, that supports the above abnormalities and additional evaluation, monitoring, and/or treatment rendered: * Rhabdomyolysis * Traumatic Rhabdomyolysis * Other (please specify) * Unable to determine Use of terms such as suspected, likely, concern for, or probable (associated with a specific diagnosis that is being evaluated, monitored, or treated as if it exists) are acceptable and can be coded in the inpatient setting, when documented at the time of discharge. Thank you, Lula Malhotra [facility], CDIS Extension: [id number] Please use your independent medical judgment in providing your response. THIS QUERY IS PART OF THE PERMANENT MEDICAL RECORD Provider Response: Other Other Diagnosis: traumatic rhabdomylosis
--- NOTE | 2021-04-22 11:33 | PC.NURSE ---
Skin assessment completed. Patient has scattered bruising on arms plus scabbed abrasions to bilateral knees. Blanchable pinkness to her buttocks. No other skin issues noted at this time.
[2021-04-22 12:45] LABS: COVID-19 Test Negative (Negative); IDNOW Serial# 9DD0AD1C
--- NOTE | 2021-04-22 14:41 | MHC.CM.PN ---
PT DISCHARGING TO [facility] FOR STR, ACTION FOR BLS TRANSPORT.
[2021-04-22 15:48] LABS: Anion Gap 14 (12-20); Blood Urea Nitrogen 21 mg/dL (9-16); Calcium 8.5 mg/dL (8.4-10.2); Carbon Dioxide 28 mmol/L (22-29); Chloride 102 mmol/L (96-108); Creatinine Clr Calc Pharmacy 45.3; Estimated Glomerular Filt Rate 40; Glucose Random 123 mg/dL (60-115); Potassium 2.9 mmol/L (3.3-5.1); Sodium 141 mmol/L (135-145)
[2021-04-22] MEDS: Potassium Chloride Packet 20 MEQ PACKET 40 MEQ PO (16:39)
== END 2021-04-22 18:19 | disposition home or self-care (01) | DRG 565 ==
LOC: HO.ED 04-18 00:25 → HO.EDOVER 04-18 00:41 → HO.S3 04-18 13:10
PROVIDERS: Family Medicine; Admitting Provider Internal Medicine; Emergency Provider Internal Medicine; PCP Internal Medicine; Visit Provider Internal Medicine
DX: T79.6XXA Traumatic ischemia of muscle, initial encounter (principal); N39.0 Urinary tract infection, site not specified; I48.20 Chronic atrial fibrillation, unspecified; N17.9 Acute kidney failure, unspecified; Z16.11 Resistance to penicillins; W18.30XA Fall on same level, unspecified, initial encounter; Y92.032 Bedroom in apartment as the place of occurrence of the external cause; F17.210 Nicotine dependence, cigarettes, uncomplicated; B96.1 Klebsiella pneumoniae [K. pneumoniae] as the cause of diseases classified elsewhere; F39 Unspecified mood [affective] disorder; E87.6 Hypokalemia; E03.9 Hypothyroidism, unspecified; E66.9 Obesity, unspecified; Z20.822 Contact with and (suspected) exposure to COVID-19; Z71.6 Tobacco abuse counseling; Z79.51 Long term (current) use of inhaled steroids; Z79.890 Hormone replacement therapy; Z79.899 Other long term (current) drug therapy
CPT/HCPCS: 36415; 70450; 71045; 73030; 80048; 80053; 81001; 82550; 83605; 83735; 85025; 85027; 85610; 85730; 87040; 87077; 87086; 87088; 87186; 87205; 87635; 93005; 96361; 96374; 97116; 97161; 99285; J0696; J1940